=== PATIENT | female | born 1950 | race Caucasian/White ===

== ENCOUNTER 2016-12-29 15:14 | Emergency (ER) | payer MEDICARE ==
[2016-12-29 17:18] VITALS: BP 106/69
--- NOTE | 2016-12-29 17:44 | UC ---
Respiratory Complaint HPI - HPI Summary HPI Summary: 2 WEEKS OF COUGH, CHEST CONGESTION THAT NOW SEEM IMPROVED. HAD FEVER TMAX 102 INITIALLY BUT NONE FOR OVER A WEEK. NOW PT REPORTS SINUS SX HAVE RETURNED. HAS DIFFUSE ABDOMINAL DISCOMFORT, FEELS NAUSEATED. NO DIARRHEA. DENIES DYSURIA BUT DOES REPORT SOME FREQUENCY. 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 Negative: Dyspnea, Chills, Pleuritic Chest Pain, Wheezing, Hemoptysis, Dizziness, Calf Pain, Calf Swelling, Edema, Hoarseness - Allergies/Home Medications Allergies/Adverse Reactions: Allergies Allergy/AdvReac Type Severity Reaction Status Date / Time Penicillins Allergy Unknown Verified 12/29/16 15:30 Reaction Details Home Medications: Home Medications diPHENhydraMINE PO* [Benadryl PO 25 MG TAB*] 12/29/16 [History] PMH/Surg Hx/FS Hx/Imm Hx Endocrine History Of: Denies: Diabetes, Thyroid Disease Cardiovascular History Of: Denies: Cardiac Disorders, Hypertension, Pacemaker/ICD Respiratory History Of: Denies: COPD, Asthma GI/ History Of: Denies: Ulcer, Renal Disease - Surgical History Surgical History: Yes Surgery Procedure, Year, and Place: APPENDECTOMY - Social History Alcohol Use: Weekly Alcohol Amount: 3-4 GLASSES/WEEK Substance Use Type: None Smoking Status (MU): Never Smoked Tobacco - Immunization History Most Recent Tetanus Shot: THINKS SHE IS UTD Review of Systems Constitutional: Fever, Fatigue ENT: Nasal Discharge Respiratory: Cough Cardiovascular: Negative Gastrointestinal: Abdominal Pain, Other - NAUSEA Genitourinary: Frequency Musculoskeletal: Myalgia Neurological: Headache All Other Systems Reviewed And Are Negative: Yes Physical Exam Triage Information Reviewed: Yes Appearance: Well-Appearing, No Pain Distress, Well-Nourished Vital Signs: Initial Vital Signs Temp 98.6 F 12/29/16 15:26 Pulse 70 12/29/16 15:26 Resp 16 04/21/17 15:26 BP 110/62 12/29/16 15:26 Pulse Ox 100 12/29/16 15:26 Vital Signs Reviewed: Yes Eyes: Positive: Conjunctiva Clear ENT: Positive: Hearing grossly normal, Pharynx normal, TMs normal Dental Exam: Normal Neck: Positive: Supple Respiratory Exam: Normal Cardiovascular Exam: Normal Abdomen Description: Positive: Soft Bowel Sounds: Positive: Present Musculoskeletal: Positive: ROM Intact Neurological: Positive: Alert Psychological: Positive: Age Appropriate Behavior Skin: Negative: rashes UC Diagnostic Evaluation - Laboratory O2 Sat by Pulse Oximetry: 100 Diagnostic Studies Comment: URINE DIP SP. GR 1.005, TRACE BLOOD. RAPID FLU NEGATIVE Respiratory Course/Dx - Differential Dx/Diagnosis Provider Diagnoses: 1. ACUTE VIRAL SYNDROME. 2. MICROSCOPIC HEMATURIA Discharge - Discharge Plan Condition: Stable Disposition: HOME Patient Education Materials: Hematuria (ED), Viral Syndrome (ED) Referrals: Ibis Urbina MD [Primary Care Provider] - If Needed Additional Instructions: FLU SWAB NEGATIVE. BLOOD DRAWN TO CHECK BLOOD COUNT AND LYME SEROLOGY. WE WILL CALL YOU WITH ANY ABNORMAL RESULTS. URINE TEST HAD TRACE BLOOD. THERE SHOULD NOT BE ANY BLOOD IN THE URINE. PLEASE HAVE THIS RECHECKED IN ABOUT 2 WEEKS TO ENSURE IT HAS CLEARED. FOLLOW-UP WITH YOUR PCP IF SYMPTOMS ARE NOT IMPROVING EXPECTED OVER THE NEXT WEEK OR SO. VIRAL SYNDROME: The physician has diagnosed a viral infection. Viruses not only cause "colds," but can cause many different symptoms including generalized aching, fever, headache, cough, diarrhea, nausea, vomiting, and fatigue. The treatment, for the most part, is simply relief of symptoms. This means that antibiotics are usually not given. Rest, fluids, pain medications and, occasionally, medication for the specific symptoms that are most bothersome will be prescribed. Contact the physician if you develop any new or unusual symptoms such as severe headache, stiff neck, high fever, chest pain, productive cough, or shortness of breath. You should be rechecked if you don't see marked improvement within seven to 10 days.
[2016-12-30 13:39] LABS: Hematocrit 37 % (35-47); Hemoglobin 12.2 g/dl (12.0-16.0); Mean Corpuscular HGB Conc 33 g/dl (31-36); Mean Corpuscular Hemoglobin 28 pg (27-31); Mean Corpuscular Volume 86 fL (80-97); Mean Platelet Volume 8 um3 (7.4-10.4); Red Blood Count 4.32 10^6/ul (4.0-5.4); Red Cell Distribution Width 13 % (10.5-15); White Blood Count 6.3 10^3/ul (3.5-10.8)
== END 2016-12-29 18:38 | disposition home or self-care (01) ==
LOC: UCEAST 15:14
DX: B34.9 Viral infection, unspecified (principal); R31.29 Other microscopic hematuria; Z88.0 Allergy status to penicillin
CPT/HCPCS: 36415; 81003; 85025; 86618; 87502; 99212; G0463

== ENCOUNTER 2019-01-31 04:53 | Emergency (ER) | payer MEDICARE ==
--- OUTSIDE RECORDS SUMMARY | 2019-01-31 04:59 | XMS REPORT | Continuity of Care Document ---
:1950 External Reference #:[id number] Author Name Ibis Corral M.D. Address [address] [place] [address] Care Team Providers Name Role Phone Ibis Corral Care Team Information Color Checker Roving Or Yarn Unavailable Ibis Corral Primary Care Physician Unavailable Payers Date Identification Numbers Payment Provider Subscriber Effective: 2018 Policy Number: [id number] [place] PayID: [id number] [address] [place] [address] Effective: 2013 Policy Number: [id number] [place] Expires: 2018 PayID: [id number] [address] [place] [address] Effective: 2012 Policy Number: [facility] [place] [id number] Options Group Name[facility] [id number] PayID: [id number] [place] [address] Advance Directives Description No Information Available Problems Active Problems Provider Date Other hyperlipidemia Ibis Corral M.D. Onset: 11/21/2018 Glossodynia Ibis Corral M.D. Onset: 12/08/2011 Family History Date Family Member(s) Observation Comments General Colon Cancer PGF, and father's uncle General Prostate Cancer father's brother General Sister - age 63September. dt breast CA dx'd age 36, 2nd primary 6 years ago recently recurred. No lung, Ca, no uterine,ovarian,cervical CA.No NM, DM. Father , 80, CAD, during Bypass surgery. Mother at May 2013. mild stroke 2 years ago. arrythmia. Lived in [facility] here in [place]. Paget's disease affected her legs. Number of Children 2- healthy. Number of Siblings 5 living siblings, all healthy. 2 , breast CA age 63, and drowning at age 9. Social History Type Date Description Comments Sex Unknown Education Abd, Masters - Masters in Conflict Resolution, [place]. Marital Status Patient is Living Situation Lives with spouse, 28 and 38 yo children in [facility] and [place]. 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 Tobacco Use Start: Unknown End: Former Cigarette Smoker x 5 years. Unknown 1/2 Pack Daily ETOH Use Currently consumes >2-3 glasses wine alcohol weekly. Tobacco Use Start: Unknown End: Patient is a former Unknown smoker Smoking Status Reviewed: 01/30/19 Patient is a former smoker Exercise Type/Frequency Exercises regularly. Current walks daily 45 minutes - 1 hour. jay chi twice weekly. Seat Belt/Car Seat Always uses a seat belt Allergies, Adverse Reactions, Alerts Active Allergies Reaction Severity Comments Date Penicillin arm blew up. 10/05/2010 Evista mouth rash and discomfort 11/21/2018 Medications Active Medications SIG Qnty Indications Ordering Provider Date Doxycycline 1 by mouth twice 60tabs R50.9 Ibis Jefferson 01/30/2019 Monohydrate daily with small Allie Corral 100mg amount of non Tablets dairy food Vitamin D take 1 capsule by 8caps E55.9 Ibis Jefferson 01/07/2019 (Ergocalciferol) mouth once weekly Allie Corral for 8 weeks. [id number] Capsules Lorazepam 1/2 pill po bid 30tabs 300.09 Ibis Jefferson 12/27/2017 0.5mg Tablets prn Allie Corral Turmeric In [place] Oil one daily Ibis Jefferson 07/24/2016 Gel Cap Allie Corral Wellness Pill 1 po qd Unknown History Medications Doxycycline Hyclate take one capsule by 60caps R50.9 Ibis Jefferson 01/30/2019 - mouth twice a day Allie Corral 01/30/2019 100mg Capsules with some food in your stomach, but not dairy Boostrix inject .500ml Z23 Ibis Jefferson 11/21/2018 - intramuscular Allie Corral 01/30/2019 5-2.5-18.5LF-mcg/0.5 Suspension Azithromycin 2 by mouth today. 1 6tabs J01.90 Ibis L. 11/13/2018 - 250mg by mouth daily x 4 Allie Corral 11/21/2018 Tablets Azithromycin 2 by mouth today. 1 31tabs J32.9 Ibis Jefferson 02/13/2018 - 250mg by mouth daily x 29 Allie Corral 11/13/2018 Tablets days for chronic sinusitis Physical Therapy evaluate and treat 1units M25.511 Simona Benitez 12/01/2017 - right shoulder, MINESH Xiao 11/21/2018 right hip and bilateral knees Cyclobenzaprine HCL take 1-2 tablets by 60tabs M25.511 Simona Benitez 2017 - 5mg mouth at night as MINESH Xiao 02/13/2018 Tablets needed for back spasm Azithromycin 2 by mouth today. 1 11tabs Ibis Jefferson 11/20/2017 - 250mg by mouth daily x 9 Allie Corral 12/27/2017 Tablets Atovaquone 5ml by mouth twice 100ml Ibis Jefferson 11/20/2017 - 750mg/5ML daily x 10 days. Allie Corral 12/27/2017 Suspension Doxycycline Hyclate take one capsule by 60caps R51 Ibis Jefferson 11/13/2017 - mouth twice a day Allie Corral 02/13/2018 100mg Capsules on an empty stomach Azithromycin 2 by mouth today. 1 6tabs Ibis Jefferson 01/25/2017 - 250mg by mouth daily x 4 Allie Corral 11/13/2017 Tablets repeat in several days as necessary. Fluconazole 1 by mouth. repeat 4tabs Ibis Jefferson 01/25/2017 - 150mg in 4-6 days as Allie Corral 11/13/2017 Tablets necessary for yeast infection. Physical Therapy left sciatica, Ibis Jefferson 07/24/2016 - right hip pain. Allie Corral 09/06/2016 Right shoulder pain Magnesium one daily. Ibis Jefferson 07/24/2016 - 500mg Allie Corral 01/09/2017 No Active Medications Unknown 07/24/2016 - 07/24/2016 Lorazepam 1/2 pill po bid 30tabs 300.09 Ibis Jefferson 01/29/2014 - 0.5mg Tablets prn Allie Corral 07/24/2016 No Active Medications Unknown 01/15/2014 - 01/15/2014 Omeprazole 1 po bid 60caps 780.99 Ibis Jefferson 01/15/2014 - 20mg Allie Corral 07/24/[address] Vitamin D3` 1 po qod Ibis Jefferson 12/08/2011 - 2500 Allie Corral 01/15/2014 Vitamin 1 po daily Ibis Jefferson 12/08/2011 - C/Bioflavonoids Allie Corral 01/15/2014 1000-100mg Tablets ER Vitamin D3 Ibis Jefferson 10/05/2010 - Allie Corral 12/08/2011 Calcium/Magnesium 2 day Ibis Jefferson 10/05/2010 - Allie Corral 02/24/2013 300-300mg Tablets Vitamin C 1- po qd 100tabs Ibis Jefferson 10/05/2010 - 500mg Tablets Allie Corral 12/08/2011 B Complex Ibis Jefferson 10/05/2010 - Allie Corral 12/08/2011 Evista 1 po qd 90tabs Unknown - 60mg Tablets 11/16/2010 Asprin Unknown - 81mg 11/16/2010 Reservatrol Unknown - 553mg 02/24/2013 Easy Iron Unknown - 25mg 02/24/2013 Zinc Unknown - 50mg Capsules 02/24/2013 Vitamin B-12 Unknown - 50mg 02/24/2013 Tablets Flonase Allergy one spray per Unknown - Relief Childrens nostril daily x 6 01/30/2019 weeks 50mcg/Act Suspension Immunizations CPT Code Status Date Vaccine Lot # [id number] Given 09/05/2010 Influenza Vac, Quadrivalent, [place] [id number] Given 02/09/1999 Tetanus And Diptheria Adult Preservative Free >7Yrs Vital Signs Date Vital Result Comment 01/30/2019 11:17am BP Systolic 120 mmHg BP Diastolic 78 mmHg Heart Rate 84 /min Body Temperature 101.5 F Respiratory Rate 16 /min Weight 133.00 lb 01/07/2019 1:25pm BP Systolic 118 mmHg BP Diastolic 68 mmHg Heart Rate 82 /min Body Temperature 97.9 F Respiratory Rate 14 /min Weight 133.00 lb 11/21/2018 1:01pm BP Systolic 110 mmHg BP Diastolic 70 mmHg Heart Rate 80 /min Body Temperature 98.3 F Respiratory Rate 16 /min Height 62.5 inches 5'2.50" Weight 131.00 lb BMI (Body Mass Index) 23.6 kg/m2 Right Visual Acuity Distance 20/50 Left Visual Acuity Distance 20/25 11/13/2018 11:04am BP Systolic 120 mmHg BP Diastolic 68 mmHg Heart Rate 80 /min Body Temperature 97.9 F Respiratory Rate 18 /min Height 63 inches 5'3" Weight 130.00 lb BMI (Body Mass Index) 23.0 kg/m2 02/13/2018 4:16pm BP Systolic 122 mmHg BP Diastolic 72 mmHg Heart Rate 60 /min Body Temperature 98.6 F Respiratory Rate 16 /min Height 63 inches 5'3" Weight 132.25 lb BMI (Body Mass Index) 23.4 kg/m2 12/27/2017 1:44pm BP Systolic 120 mmHg BP Diastolic 72 mmHg Heart Rate 72 /min Body Temperature 98.1 F Respiratory Rate 18 /min Height 63 inches 5'3" Weight 132.00 lb BMI (Body Mass Index) 23.4 kg/m2 12/01/2017 10:43am BP Systolic 120 mmHg BP Diastolic 72 mmHg Heart Rate 60 /min Body Temperature 98.2 F Respiratory Rate 18 /min Height 63 inches 5'3" Weight 129.00 lb BMI (Body Mass Index) 22.8 kg/m2 11/13/2017 3:14pm BP Systolic 120 mmHg BP Diastolic 64 mmHg Heart Rate 84 /min Body Temperature 98.0 F Respiratory Rate 16 /min Height 63 inches 5'3" Weight 130.00 lb BMI (Body Mass Index) 23.0 kg/m2 01/09/2017 9:50am BP Systolic 120 mmHg BP Diastolic 70 mmHg Heart Rate 60 /min Body Temperature 98.0 F Respiratory Rate 18 /min Height 63 inches 5'3" Weight 128.00 lb BMI (Body Mass Index) 22.7 kg/m2 09/06/2016 10:05am BP Systolic 132 mmHg BP Diastolic 82 mmHg Heart Rate 68 /min Body Temperature 96.6 F Height 63 inches 5'3" Weight 127.00 lb BMI (Body Mass Index) 22.5 kg/m2 07/24/2016 3:53pm BP Systolic 120 mmHg BP Diastolic 60 mmHg Heart Rate 60 /min Body Temperature 97.9 F Respiratory Rate 16 /min Weight 127.50 lb 04/20/2014 7:11pm BP Systolic 114 mmHg BP Diastolic 66 mmHg Heart Rate 60 /min Body Temperature 98.3 F Respiratory Rate 16 /min Height 63 inches 5'3" Weight 126.50 lb BMI (Body Mass Index) 22.4 kg/m2 01/29/2014 10:58am BP Systolic 124 mmHg BP Diastolic 78 mmHg Heart Rate 72 /min Body Temperature 97.7 F Respiratory Rate 16 /min Height 63 inches 5'3" Weight 128.00 lb BMI (Body Mass Index) 22.7 kg/m2 01/15/2014 10:13am BP Systolic 124 mmHg BP Diastolic 80 mmHg Heart Rate 72 /min Body Temperature 97.7 F Respiratory Rate 18 /min Height 63 inches 5'3" Weight 129.00 lb BMI (Body Mass Index) 22.8 kg/m2 02/24/2013 7:19pm BP Systolic 126 mmHg BP Diastolic 80 mmHg Heart Rate 72 /min Body Temperature 98.1 F Respiratory Rate 16 /min Height 63 inches 5'3" Weight 129.38 lb BMI (Body Mass Index) 22.9 kg/m2 12/08/2011 4:05pm BP Systolic 110 mmHg BP Diastolic 60 mmHg Heart Rate 72 /min Body Temperature 97.7 F Respiratory Rate 20 /min Height 63 inches 5'3" Weight 132.00 lb BMI (Body Mass Index) 23.4 kg/m2 11/16/2010 1:08pm BP Systolic 110 mmHg BP Diastolic 70 mmHg Heart Rate 80 /min Body Temperature 98.2 F Respiratory Rate 16 /min Height 63 inches 5'3" Weight 126.00 lb BMI (Body Mass Index) 22.3 kg/m2 10/05/2010 4:55pm BP Systolic 132 mmHg BP Diastolic 82 mmHg Heart Rate 68 /min Body Temperature 97.5 F Height 63 inches 5'3" Weight 124.00 lb BMI (Body Mass Index) 22.0 kg/m2 Results Test Date Facility Test Result H/L Range Note Comprehensive Metabolic 01/30/2019 Alfredo Jill(a) Sodium 138 mEq/L 134-149 Prof Potassium 4.0 mEq/L 3.6-5.5 Chloride 96 mEq/L 94-112 Carbon Dioxide 23 mEq/L 21-32 Glucose 97 mg/dL 70-105 BUN 7 mg/dL 6-26 Creatinine 0.8 mg/dL 0.6-1.4 BUN/Creat Ratio 8.8 CALC 8.0-36.0 Calcium 8.9 mg/dL 8.6-10.2 Total Protein 7.0 g/dL 6.4-8.3 Albumin 4.4 g/dL 3.8-5.5 Globulin 2.6 g/dL 2.0-4.8 A/G Ratio 1.7 CALC 0.6-2.3 Alk. Phosphatase 57 U/L 30-110 Alt (SGPT) 25 U/L 7-35 Ast (Sgot) 24 U/L 5-34 Total Bilirubin 0.7 mg/dL 0.2-1.3 GFR Non- >60 ml/min/1.73m^ >=60 GFR >60 ml/min/1.73m^ >=60 CBC Manual Diff-a 01/30/2019 [facility] WBC <pending> 4.0-10.0 (607)- - RBC <pending> 3.93-6.0 Hemoglobin (Fma/CMC/CTX) <pending> g/dL 12.0-17.0 Hematocrit (Fma/CMC/CTX) <pending> % 35.0-50.0 Mean Corpuscular Vol <pending> fL 80-95 Mean Corpuscular Hemoglobin <pending> pg 25.6-32.2 Mean Corpuscular Hemo Concen <pending> g/dL 32.2-36.0 Platelets <pending> 10^3/ul 163-400 RDW <pending> 11.6-13.7 Mean Platelet Volume <pending> fL 8.0-12.4 Neutrophil % <pending> % 34.0-70.0 Band Neutrophil <pending> % 1-7 Lymph% <pending> % 20.0-52.0 Monocytes % <pending> % 5.0-12.0 Eos % <pending> % 0.7-7.0 Basophil% <pending> % 0-1.2 Atypical Lymph <pending> Metamyelocytes <pending> Myelocytes <pending> Promyelocytes <pending> Blasts <pending> NRBC <pending> % 0-0.1 Macrocytosis <pending> Microcytosis (a/[facility]) <pending> Hypochrom <pending> Polychrom <pending> Anisocytosis (a/[facility]) <pending> Ovalocytes <pending> Elliptocyte <pending> Comment <pending> Flu A&B ([facility]) 01/30/2019 [facility] Medicine Influenza A neg (607)- - Influenza B neg Laboratory test 12/23/2018 Juni Melchor([facility]) TSH 2.82 mIU/L 0.50-6.00 finding Lipid Profile 12/23/2018 Juni Melchor([facility]) Cholesterol 275 mg/dL High 120-200 Triglycerides 83 mg/dL 30-200 HDL Cholesterol 86 mg/dL High 30-85 LDL (Calculated) 172 CALC High 0-129 VLDL Cholesterol 17 mg/dL 0-50 HDL Risk Factor 3.2 CALC 0.0-4.4 Comprehensive Metabolic 12/23/2018 Juni Melchor([facility]) Sodium 145 mEq/L 134-149 Prof Potassium 3.9 mEq/L 3.6-5.5 Chloride 107 mEq/L 94-112 Carbon Dioxide 22 mEq/L 21-32 Glucose 104 mg/dL 70-105 BUN 17 mg/dL 6-26 Creatinine 0.7 mg/dL 0.6-1.4 BUN/Creat Ratio 24.3 CALC 8.0-36.0 Calcium 9.7 mg/dL 8.6-10.2 Total Protein 6.9 g/dL 6.4-8.3 Albumin 4.7 g/dL 3.8-5.5 Globulin 2.2 g/dL 2.0-4.8 A/G Ratio 2.1 CALC 0.6-2.3 Alk. Phosphatase 50 U/L 30-110 Alt (SGPT) 16 U/L 7-35 Ast (Sgot) 18 U/L 5-34 Total Bilirubin 0.9 mg/dL 0.2-1.3 GFR Non- >60 ml/min/1.73m^ >=60 GFR >60 ml/min/1.73m^ >=60 Laboratory test 12/23/2018 Alfredo Jill([facility]) Vitamin D25 27 Low 30-100 finding CBC Electronic Fma 12/23/2018 Alfredo Jill(a) WBC 5.0 4.0-10.0 x10^3/UL RBC 4.01 x10^6/UL 3.93-6.00 HGB 11.6 g/dL Low 12.0-17.0 HCT 36 % 35-50 MCV 89.5 fL 80.0-95.0 MCH 28.9 pg 25.6-32.2 MCHC 32.3 g/dL 32.2-36.0 RDW-CV 13.0 % 11.6-14.4 PLT 265 x10^3/UL 163-400 MPV 9.6 fL 9.4-12.4 Chauncey# 1.66 x10^3/UL 1.56-6.13 Lymph# 2.49 x10^3/UL 1.18-3.74 [place]# 0.49 x10^3/UL 0.24-0.82 Eos # 0.3 x10^3/UL 0.0-0.5 Baso # 0.04 x10^3/UL 0.01-0.08 [place]% 33.5 % Low 34.0-70.0 Lymph % 50.3 % 20.0-52.0 [place]% 9.9 % 5.0-12.0 Eos% 5.3 % 0.7-7.0 Baso% 0.8 % 0.1-1.2 Cat Scratch Fever 12/27/2017 [facility] Bartonella Henselae IgG <1:128 titer <1 :128 Panel Bartonella Henselae IgM <1:20 titer <1:20 Bartonella Lezama IgG <1:128 titer <1:128 Bartonella Lezama IgM <1:20 titer <1:20 1 Laboratory test 11/21/2017 [facility] Babesia Negative Negative 2, [address] microti, [place] [address] (413)- - Hematopath 11/21/2017 [facility] WBC See Comment: 4 Consultation [address] [facility] [address] (607)- - RBC RBC's appear nor <SEE NOTE> 5 PLTs Adequate Comments/Recommendations See Comment: 6 Pathologist See Comment: 7 WBC 5.8 x10E3/uL 3.4-10.8 RBC 4.04 x10E6/uL 3.77-5.28 Hemoglobin 11.6 g/dL 11.1-15.9 Hematocrit 35.7 % 34.0-46.6 MCV 88 fL 79-97 MCH 28.7 pg 26.6-33.0 MCHC 32.5 g/dL 31.5-35.7 RDW 13.9 % 12.3-15.4 Platelets 261 x10E3/uL 150-379 Neutrophils 43 % Not Estab. Lymphs 43 % Not Estab. Monocytes 9 % Not Estab. Eos 5 % Not Estab. Basos 0 % Not Estab. Immature Cells TNP Neutrophils (Absolute) 2.5 x10E3/uL 1.4-7.0 Lymphs (Absolute) 2.5 x10E3/uL 0.7-3.1 Monocytes(Absolute) 0.5 x10E3/uL 0.1-0.9 Eos (Absolute) 0.3 x10E3/uL 0.0-0.4 Baso (Absolute) 0.0 x10E3/uL 0.0-0.2 Immature Granulocytes 0 % Not Estab. Immature Grans (Abs) 0.0 x10E3/uL 0.0-0.1 NRBC TNP Hematology Comments: TNP Lyme, Western Blot, 11/13/2017 [facility] IgG P93 Ab. Absent 8 Serum [address] [place] [address] (605)- - IgG P66 Ab. Absent IgG P58 Ab. Absent IgG P45 Ab. Absent IgG P41 Ab. Present Abnormal IgG P39 Ab. Present Abnormal IgG P30 Ab. Absent IgG P28 Ab. Absent IgG P23 Ab. Absent IgG P18 Ab. Absent Lyme IgG WB Interp. Negative 9 IgM P41 Ab. Absent IgM P39 Ab. Absent IgM P23 Ab. Absent Lyme IgM WB Interp. Negative 10 Ehrlichiosis Panel 11/13/2017 [facility] E. chaffeensis Negative Neg:<1:[address] ([facility]) [place] [address] (607)- - E. chaffeensis ([facility]) IgM Titer Negative Neg:<1:20 11 Hge IgG Titer Negative Neg:<1:64 12 Hge IgM Titer Negative Neg:<1:20 13 Bab[facility]ia Microti 11/13/2017 [facility] [place] microti <1:10 Neg:<1:10 AB Panel [address] [place] [address] (607)- - Babesia microti IgG 1:20 High Neg:<1:10 14 Comprehensive Metabolic 11/13/2017 Alfredo Jill(fma) Sodium 143 mEq/L 134-149 Prof Potassium 4.3 mEq/L 3.6-5.5 Chloride 104 mEq/L 94-112 Carbon Dioxide 30 mEq/L 21-32 Glucose 110 mg/dL High 70-105 15 BUN 16 mg/dL 6-26 Creatinine 0.8 mg/dL 0.6-1.4 BUN/Creat Ratio 20.0 CALC 8.0-36.0 Calcium 10.2 mg/dL 8.6-10.2 Total Protein 7.5 g/dL 6.4-8.3 Albumin 4.8 g/dL 3.8-5.5 Globulin 2.7 g/dL 2.0-4.8 A/G Ratio 1.8 CALC 0.6-2.3 Alk. Phosphatase 56 U/L 30-110 Alt (SGPT) 17 U/L 7-35 Ast (Sgot) 15 U/L 5-34 Total Bilirubin 0.8 mg/dL 0.2-1.3 GFR Non- >60 ml/min/1.73m^ >=60 GFR >60 ml/min/1.73m^ >=60 Laboratory test finding 11/13/2017 Alfredo Jill(fma) TSH 2.08 mIU/L 0.50-6.00 CBC Electronic ([facility] New) 11/13/2017 [facility] WBC 6.25 4.0-10.0 (607)- - RBC 4.12 3.93-6.0 Hemoglobin (Fma/CMC/CTX) 12.1 g/dL 12.0-17.0 Hematocrit (Fma/CMC/CTX) 36.2 % 35.0-50.0 Mean Corpuscular Vol 87.9 fL 80-95 Mean Corpuscular Hemoglobin 29.4 pg 25.6-32.2 Mean Corpuscular Hemo Concen 33.4 g/dL 32.2-36.0 Platelets 255 10^3/ul 163-400 RDW-CV 12.9 11.6-14.4 Mean Platelet Volume 9.4 fL 9.4-12.4 Absolute Neutrophils BLD 3.16 1.56-6.13 Absolute Lymphocytes 2.30 1.18-3.74 Absolute Monocytes BLD Auto 0.48 0.24-0.82 Absolute Eos Blood 0.28 0.04-0.54 Absolute Basophils 0.03 0.01-0.08 Neutrophil % 50.5 34.0-70.0 Lymph% 36.8 % 20.0-52.0 Monocytes % 7.7 % 5.0-12.0 Eos % 4.5 % 0.7-7.0 Basophil% 0.5 % 0.1-1.2 Influenza A&B-[facility] 01/09/2017 [facility] Influenza A NEG (607)- - Influenza B NEG CBC Manual Diff-[facility] 01/09/2017 [facility] WBC 5.1 3.6-9.6 (607)- - RBC 3.74 Low 3.90-5.70 Hemoglobin (Fma/CMC/CTX) 11.1 g/dL Low 12.1 - 17.2 Hematocrit (Fma/CMC/CTX) 32.1 % Low 36.1 - 50.3 Mean Corpuscular Vol 86 82.2-97.4 Mean Corpuscular Hemoglobin 29.7 27.6-33.3 Mean Corpuscular Hemo Concen 34.6 32.0-36.0 Platelets 316 10^3/ul 150-400 RDW 13.5 11.6-13.7 Mean Platelet Volume 6.4 5.5-11.0 Neutrophil 42 Band 2 Lymphocytes 46 Monocyte 5 Eosinophils 5 Poikilocytosis slight Z#Comment plts normal Comprehensive Metabolic 01/09/2017 Alfredo Jill([facility]) Sodium 142 mEq/L 134-149 Prof Potassium 4.4 mEq/L 3.6-5.5 Chloride 103 mEq/L 94-112 Carbon Dioxide 25 mEq/L 21-32 Glucose 105 mg/dL 70-105 BUN 8 mg/dL 6-26 Creatinine 0.8 mg/dL 0.6-1.4 BUN/Creat Ratio 10.0 CALC 8.0-36.0 Calcium 9.7 mg/dL 8.6-10.2 Total Protein 6.4 g/dL 6.4-8.3 Albumin 4.2 g/dL 3.8-5.5 Globulin 2.2 g/dL 2.0-4.8 A/G Ratio 1.9 CALC 0.6-2.3 Alk. Phosphatase 54 U/L 30-110 Alt (SGPT) 12 U/L 7-35 Ast (Sgot) 13 U/L 5-34 Total Bilirubin 0.8 mg/dL 0.2-1.3 GFR Non- >60 ml/min/1.73m^ >=60 GFR >60 ml/min/1.73m^ >=60 Urine Culture 01/09/2017 [facility] Urine Culture, Final report 16, 17 Routine [address] [facility] [place] [address] (607)- - Result 1 No growth 18 G6PD Quantitative 01/09/2017 [facility] Hemoglobin 11.0 g/dL Low 11.1-15.9 Blood And [address] [facility] [place] [address] (607)- - G-6-PD, Quant 6.4 U/gHb 4.6-13.5 19 Ua - Micro (Fma) 01/09/2017 [facility] Medicine Appearance CLEAR (607)- - Color YELLOW Glucose, Urine (Fma/CMC/CTX) NEG Bilirubin NEG Ketones NEG SP Grav 1.010 Blood TRACE-LYSED # PH 5.5 Protein NEG Urobil 0.2 Nitrite NEG Leukocytes (Fma/CMC/[facility]) NEG Hyaline - /Lpf Granular - /Lpf WBC (Fma,[facility]) 2-3 # RBC - Mucus (Fma/CBC/[facility]) RARE /Lpf # Epith - /Lpf Bacteria - /Hpf Amorphous (Fma/CMC/[facility]) - /Lpf Crystals, Fluid (Fma/CMC/CTX) - Lyme, Western Blot, 01/09/2017 [facility] IgG P93 Ab. Absent Serum [address] [place] [address] (607)- - IgG P66 Ab. Absent IgG P58 Ab. Absent IgG P45 Ab. Absent IgG P41 Ab. Absent IgG P39 Ab. Absent IgG P30 Ab. Absent IgG P28 Ab. Absent IgG P23 Ab. Absent IgG P18 Ab. Absent Lyme IgG WB Interp. Negative 20 IgM P41 Ab. Absent IgM P39 Ab. Absent IgM P23 Ab. Absent Lyme IgM WB Interp. Negative 21 CBC Auto Diff 12/29/2016 [facility] White Blood Count 6.3 10^3/uL N 3.5-10.8 Red Blood Count 4.32 10^6/uL N 4.0-5.4 Hemoglobin 12.2 g/dL N 12.0-16.0 Hematocrit 37 % N 35-47 Mean Corpuscular Volume 86 fL N 80-97 Mean Corpuscular Hemoglobin 28 pg N 27-31 Mean Corpuscular HGB Conc 33 g/dL N 31-36 Red Cell Distribution Width 13 % N 10.5-15 Platelet Count 235 10^3/uL N 150-450 Mean Platelet Volume 8 um3 N 7.4-10.4 Abs Neutrophils 3.0 10^3/uL N 1.5-7.7 Abs Lymphocytes 2.4 10^3/uL N 1.0-4.8 Abs Monocytes 0.6 10^3/uL N 0-0.8 Abs Eosinophils 0.3 10^3/uL N 0-0.6 Abs Basophils 0.1 10^3/uL N 0-0.2 Abs Nucleated RBC 0.01 10^3/uL N Granulocyte % 46.7 % N 38-83 Lymphocyte % 38.4 % N 25-47 Monocyte % 9.2 % High 1-9 Eosinophil % 4.9 % N 0-6 Basophil % 0.8 % N 0-2 Nucleated Red Blood Cells % 0.2 N Laboratory test finding 12/29/2016 [facility] Lyme Disease Serology Negative N Negative 22 Poc Urinalysis 12/29/2016 [facility] Poc Glucose, Urine Negative N Negative Poc Bilirubin, Urine Negative N Negative Poc Ketone, Urine Negative N Negative Poc Specific [place], Urine <=1.005 Low 1.010-1.030 Poc Blood, Urine Trace-intact Abnormal Negative Poc pH, Urine 5.5 N 5-9 Poc Protein, Urine Negative N Negative Poc Urobilinogen, Urine 0.2 N Negative Poc Nitrite, Urine Negative N Negative Poc Leukocytes, Urine Negative N Negative Poc Color, Urine Yellow N Poc Clarity, Urine Clear N 23 Rapid Influenza A & B 12/29/2016 [facility] Influenza A Molecular NEGATIVE N Negative 24 Molecular Influenza B Molecular NEGATIVE N Negative Surgical Pathology 09/07/2014 [facility] S RUN DATE: 09/08/ <SEE 25 NOTE> Creatinine 08/10/2014 [facility] Creatinine 0.74 mg/dL N 0.51-0.95 Egfr Non- 78.5 N >60 Egfr 101.0 N >60 26 Laboratory test 04/22/2014 [facility] O P: Giardia/Cryptospor (SEE NOTE) 27 finding Screen Stool Culture (SEE NOTE) 28 E.coli O157:H7 Culture (SEE NOTE) 29 Urine Culture And 04/20/2014 [facility] Urine Culture (SEE NOTE) 30 Sensitivities Comprehensive 04/20/2014 Alfredo Jill(fma) Sodium 135 mEq/L 134-149 Metabolic Prof Potassium 3.7 mEq/L 3.6-5.5 Chloride 103 mEq/L 94-112 Carbon Dioxide 27 mEq/L 21-32 Glucose 90 mg/dL 70-105 BUN 15 mg/dL 6-26 Creatinine 0.8 mg/dL 0.6-1.4 BUN/Creat Ratio 18.8 CALC 8.0-36.0 Calcium 10.0 mg/dL 8.6-10.2 Total Protein 8.0 g/dL 6.3-8.1 Albumin 5.0 g/dL 3.8-5.5 Globulin 3.0 g/dL 2.0-4.8 A/G Ratio 1.7 CALC 0.6-2.3 Alk. Phosphatase 55 U/L 30-110 Alt (SGPT) 20 U/L 7-35 Ast (Sgot) 15 U/L 5-34 Total Bilirubin 0.8 mg/dL 0.2-1.3 Ua - Micro (Fma) 04/20/2014 [facility] Appearance CLEAR (607)- - Color YELLOW Glucose NEGATIVE Bilirubin NEGATIVE Ketones NEGATIVE SP Grav >=1.005 Blood SMALL # PH 5.5 Protein NEGATIVE Urobil 0.2 Nitrite NEGATIVE Leukocytes ([facility]ma/CMC/[facility]) NEGATIVE Hyaline - /Lpf Granular - /Lpf WBC ([facility]) 0-1 # RBC 0-1 # Mucus - /Lpf Epith occass /Lpf # Bacteria rare /Hpf # Amorphous - /Lpf Crystals, Fluid (Fma/CMC/CTX) - Z#Comments - Complete Blood Count 01/15/2014 Juni Jill(a) WBC 4.7 x10^3/UL 3.6 -9.6 RBC 4.19 x10^6/UL 3.90-5.70 HGB 12.3 g/dL 12.1-17.2 HCT 37 % 36-50 MCV 89.0 fL 82.2-97.4 MCH 29.4 pg 27.6-33.3 MCHC 33.0 g/dL 33.0-35.5 RDW 12.1 % 11.6-13.7 PLT 262 x10^3/UL 150-400 MPV 7.1 fL Low 7.4-10.4 Gran # 2.3 x10^3/UL 1.5-7.2 Lymph# 2.1 x10^3/UL 0.7-4.9 [place]# 0.3 x10^3/UL 0.1-0.9 Gran % 48.4 % 42.2-75.2 Lymph % 45.0 % 20.5-51.1 [place]% 6.6 % 1.7-9.3 Comprehensive Metabolic 01/15/2014 Juni Jill(a) Sodium 135 mEq/L 134-149 Prof Potassium 4.2 mEq/L 3.6-5.5 Chloride 101 mEq/L 94-112 Carbon Dioxide 25 mEq/L 21-32 Glucose 96 mg/dL 70-105 BUN 13 mg/dL 6-26 Creatinine 0.8 mg/dL 0.6-1.4 BUN/Creat Ratio 16.3 CALC 8.0-36.0 Calcium 9.7 mg/dL 8.6-10.2 Total Protein 7.3 g/dL 6.3-8.1 Albumin 4.9 g/dL 3.8-5.5 Globulin 2.4 g/dL 2.0-4.8 A/G Ratio 2.0 CALC 0.6-2.3 Alk. Phosphatase 63 U/L 30-110 Alt (SGPT) 13 U/L 7-35 Ast (Sgot) 13 U/L 5-34 Total Bilirubin 1.0 mg/dL 0.2-1.3 Laboratory test 01/15/2014 Juni Jill([facility]) Free T3 2.36 pg/mL 2.00- 4.90 finding Free T4 0.85 ng/dL 0.75-1.54 Vitamin D25 39 30-100 TSH 2.55 mIU/L 0.50-6.00 Lyme Western Blot Ser 01/15/2014 [facility] IgG P93 Ab. Absent [address] [place] [address] [phone] IgG P66 Ab. Absent IgG P58 Ab. Absent IgG P45 Ab. Absent IgG P41 Ab. Absent IgG P39 Ab. Absent IgG P30 Ab. Absent IgG P28 Ab. Absent IgG P23 Ab. Absent IgG P18 Ab. Absent Lyme IgG WB Interp. Negative 31 IgM P41 Ab. Absent IgM P39 Ab. Absent IgM P23 Ab. Absent Lyme IgM WB Interp. Negative 32 Laboratory test 03/04/2013 [facility] Stool Negative Negative 33 finding Helicobacter pylori Ag Comprehensive 12/15/2011 Juni Jill([facility]) Albumin 4.6 g/dL 3.8-5.5 Metabolic Prof Alk. Phos. 64 U/L 30-110 Alt (SGPT) 16 U/L 7-35 Ast (Sgot) 17 U/L 5-34 BUN 14 mg/dL 6-26 Calcium 9.6 mg/dL 8.6-10.2 Chloride 100 mEq/L 94-112 Creatinine 0.8 mg/dL 0.6-1.4 Carbon Dioxide 25 mEq/L 21-32 Glucose 97 mg/dL 70-105 Sodium 137 mEq/L 134-149 Total Bilirubin 1.2 mg/dL 0.2-1.3 Total Protein 7.2 g/dL 6.3-8.1 Potassium 3.6 mEq/L 3.6-5.5 Globulin 2.6 g/dL 2.0-4.8 A/G Ratio 1.8 Calc 0.6-2.2 BUN/Creat Ratio 16.4 Calc 8.0-36.0 Laboratory test 12/15/2011 Juni Jill([facility]) Free T3 2.75 pg/mL 2.00- 4.90 finding Free T4 1.05 ng/dL 0.75-1.54 TSH 3.57 mIU/L 0.50-6.00 B12 371 pg/mL 230-1050 CBC Electronic (a) 12/15/2011 [facility] WBC 4.6 3.6-9.6 (607)- - RBC 4.07 3.90-5.70 Hemoglobin (Fma/CMC/CTX) 11.9 g/dL Low 12.1 - 17.2 Hematocrit (Fma/CMC/CTX) 36.0 % Low 36.1 - 50.3 Platelets 306 10^3/ul 150-400 Lymph% 47.0 20.5-51.1 Mixed% 5.0 Neutrophils % 48.0 Mean Corpuscular Vol 89 82.2-97.4 Mean Corpuscular Hemoglobin 29.2 27.6-33.3 Mean Corpuscular Hemo Concen 33.0 32.0-36.0 RDW 12.2 11.6-13.7 Mean Platelet Volume 7.5 6.5-11.0 Anti Thyroid Abs 12/15/2011 [facility] Thyroid Peroxidase <6 IU/mL 0-34 28 [facility] (Tpo) [place] [address] [phone] Antithyroglobulin Ab <20 IU/mL 0-40 34 Laboratory test 11/16/2010 [facility] Thin Prep SEE NOTE 35 finding 28 [facility] W/HPV(Lsil/JUSTEN/Asc) [place] [address] [phone] Ua - Non Micro 11/16/2010 [facility] Appearance clear (Fma) (607)- - Color yellow Glucose neg Bilirubin neg Ketones neg SP Grav 1.015 Blood neg PH 7.0 Protein neg Urobil 0.2 Nitrite neg Leukocytes (Fma/CMC/[facility]) neg Laboratory test 09/26/2010 Hospital (General) [facility] CBC;VIT D;IRON See Image finding Test Report 1 ADDITIONAL INFORMATION This test was developed and its performance characteristics determined by [facility] in a manner consistent with CLIA requirements. This test has not been cleared or approved by the U.S. Food and Drug Administration. Test Performed by: [facility] - [facility] [address] [place] [address] 2 HEMATOPATH CONSULTATION SM EAR 3 No Babesia DNA detected. This test was developed and its performance characteristics determined by [employer]. It has not been cleared or approved by the Food and Drug Administration. The FDA has determined that such clearance or approval is not necessary. 4 Few lymphocytes appear reactive. 5 RBC's appear normal. 6 Pathologist's review verifies previously reported differential results. Correlation and Clinically appropriate follow up suggested. 7 Reviewed by: Mildred Vallejo MD, Pathologist 8 2sst 9 Positive: 5 of the following Borrelia-specific bands: 18,23,28,30,39,41,45,58, 66, and 93. Negative: No bands or banding patterns which do not meet positive criteria. 10 Note: An equivocal or positive EIA result followed by a negative Western Blot result is considered NEGATIVE. An equivocal or positive EIA result followed by a positive Western Blot is considered POSITIVE by the CDC. Positive: 2 of the following bands: 23,39 or 41 Negative: No bands or banding patterns which do not meet positive criteria. Criteria for positivity are those recommended by CDC/ASTPHLD. p23=Osp C, g91=zbnrebanh Note: Sera from individuals with the following may cross react in the Lyme Western Blot assays: other spirochetal diseases (periodontal disease, leptospirosis, relapsing fever, yaws, and pinta); connective autoimmune (Rheumatoid Arthritis and Systemic Lupus Erythematosus and also individuals with Antinuclear Antibody); other infections (Krebs Spotted Fever; Briana-Cook Virus, and Cytomegalovirus). 11 IgG titers if 1:64 or greater indicate exposure or acute and convalescent samples showing a four-fold increase, and/or the presence of IgM indicate recent or current infection. 12 HGE IgG levels are detectable 7 to 10 days post infection and persist approximately one year. 13 Due to a reagent backorder, this test was performed using a different assay. The reference interval for this alternate assay is: Negative <1:64 Positive 1:64 or greater IgM levels usually rise 3 to 5 days post infection and fall to normal levels in approximately 30 to 60 days. 14 This test was developed and its performance characteristics determined by [facility]. It has not been cleared or approved by the U.S. Food and Drug Administration. The FDA has determined that such clearance or approval is not necessary. This test is used for clinical purposes. It should not be regarded as investigational or research. 15 RESULTS VERIFIED BY REPEAT ANALYSIS 16 SRC:<Blank> [id number] VACUTAINER 17 Source of Specimen: <Blank> [id number] 18 Source of Specimen: <Blank> [id number] 19 When decreased, G-6-PD, Quant. values are associated with acute hemolytic anemia when deficient individuals are exposed to oxidative stress, such as with certain medications (e.g., primaquine), infection, or ingestion of lexx beans. Caution: In patients with acute hemolysis (e.g., abnormally low RBC values), testing for G-6-PD may be falsely normal because older erythrocytes with a higher enzyme deficiency have been hemolyzed. Young erythrocytes and reticulocytes have normal or near-normal enzyme activity. Normal values of G-6-PD may be measured for several weeks following a hemolytic event. 20 Positive: 5 of the following Borrelia-specific bands: 18,23,28,30,39,41,45,58, 66, and 93. Negative: No bands or banding patterns which do not meet positive criteria. 21 Note: An equivocal or positive EIA result followed by a negative Western Blot result is considered NEGATIVE. An equivocal or positive EIA result followed by a positive Western Blot is considered POSITIVE by the CDC. Positive: 2 of the following bands: 23,39 or 41 Negative: No bands or banding patterns which do not meet positive criteria. Criteria for positivity are those recommended by CDC/ASTPHLD. p23=Osp C, m92=sxovxzyhh Note: Sera from individuals with the following may cross react in the Lyme Western Blot assays: other spirochetal diseases (periodontal disease, leptospirosis, relapsing fever, yaws, and pinta); connective autoimmune (Rheumatoid Arthritis and Systemic Lupus Erythematosus and also individuals with Antinuclear Antibody); other infections (Krebs Spotted Fever; Briana-Cook Virus, and Cytomegalovirus). 22 Serologic response to B. burgdorferi infection is not detected, but cannot rule out early infection during which low or undetectable antibody levels to B. burgdorferi may be present. If clinically indicated, a new serum specimen should be submitted in 7-14 days. Test Performed by: [address] [address] 23 Plate Painter Apprentice: [id number] Plate Painter Apprentice: [id number] RUN DATE: 09/08/14 [facility] LIVE PAGE 1 RUN TIME: [address] [place] [address] Specimen Inquiry Name: KENIA WOODS : [address]: Osman Miller MD Acct: [id number] Unit: [id number] AGE: 64 Location: ENDO Re09/07/14 SEX: F Status: REG REF SPEC: [id number] NICHOLE: 09/07/[address] [facility] [address]: Osman Miller MD REQ: [id number] RECD: 09/07/145389 STATUS: GOOD OLSON DR: Ibis Corral MD _ ORDERED: LEVEL IV FINAL DIAGNOSIS Colon, hepatic flexure, biopsy: -- Tubular adenoma. -- No high grade dysplasia or malignancy. CLINICAL HISTORY Screening colonoscopy with right lower quadrant pain and history of colon polyps POST-OPERATIVE DIAGNOSIS Screening colonoscopy into terminal ileum, prep good - small hepatic flexure polyp removed GROSS DESCRIPTION The specimen is received in formalin labeled, Biopsy Hepatic Flexure Polyp, and consists of a 0.3 x 0.2 x 0.2 cm rogers-pink irregular soft tissue fragment, which is submitted entirely in one cassette. Signed (signature on file) Prema Garvey MD 1215 END OF REPORT * ML=Testing performed at Main Lab DEPARTMENT OF PATHOLOGY, [address] [place] [address] Ran Hammond M.D. Director [facility] # [id number] 26 Because ethnic data is not always readily available, this report includes an eGFR for both -Americans and non- Americans. The National Kidney Disease Education Program (NKDEP) does not endorse the use of the MDRD equation for patients that are not between the ages of 18 and 70, are , have extremes of body size, muscle mass, or nutritional status, or are non- or non-. According to the National Kidney Foundation, irrespective of diagnosis, the stage of the disease is based on the level of kidney function: Stage Description GFR(mL/min/1.73 m(2)) 1 Kidney damage with normal or decreased GFR 90 2 Kidney damage with mild decrease in GFR 60-89 3 Moderate decrease in GFR 30-59 4 Severe decrease in GFR 15-29 5 Kidney failure <15 (or dialysis) 27 RUN DATE: 04/22/14 [facility] LIVE PAGE 1 RUN TIME: [address] [place] [address] Specimen Inquiry Name: KENIA WOODS : [address]: Ibis Corral MD Acct: [id number] Unit: [id number] AGE: 64 Location: [facility] Re04/22/14 SEX: F Status: REG REF SPEC: [id number] NICHOLE: 04/22/14-[address] [facility] [address]: Ibis Corral MD REQ: [id number] RECD: 04/22/14 STATUS: RES _ SOURCE: STOOL SPDESC: ORDERED: E.coli O157:H7, Stool Culture, O P: Giar/Crypt QUERIES: [facility] Number [id number] Procedure Result Verified Site E.coli O157:H7 Culture PENDING Stool Culture PENDING Stool Specimen Description Final 04/22/14- 1250 ML Stool Color Brown Stool Form Semi-formed Stool Consistency Soft Shiga Toxin 1 2 PENDING O P: Giardia/Cryptospor Screen Final 04/22/14- 1446 ML Organism 1 Neg Cryptosporidium/Giardia Giardia and cryptosporidium antigen testing performed by enzyme immunoassay. If patient is immunocompromised or has traveled to or is from a developing country, a full ova and parasite exam with microscopic (OPMIC) is recommended. All samples will be held one month in case full ova and parasite testing is requested. Contact the Microbiology Department at [phone]. TEST LIMITATIONS: As with all diagnostic procedures, the results obtained should be used in conjunction with other clinical information available the physician. Negative results can occur in samples containing antigen below lower limits of CONTINUED ON NEXT PAGE * ML=Testing performed at Main Lab DEPARTMENT OF PATHOLOGY, [facility] [address] [place], [place] [address] Ran Hammond M.D. Director [facility] # [id number] RUN DATE: 04/22/14 [facility] LIVE PAGE 2 RUN TIME: 1446 [facility] [address] [place], [place] [address] Specimen Inquiry Patient: KENIA WOODS [id number] (Continued) Specimen: [id number] Collected: 04/22/14 Received: 04/22/14-1128 (Continued) Procedure Result Verified Site O P: Giardia/Cryptospor Screen Final (continued) 04/22/14- 1446 detection of the assay. The use of colonic washes, aspirates or other diluted sample types has not been established and could affect the performance of the assay. Stool samples contaminated with an oily or particulate base (eg. Barium, mineral oil etc.) could interfere with the test and are not recommended. END OF REPORT * ML=Testing performed at Main Lab DEPARTMENT OF PATHOLOGY, [facility] [address] [place] [address] Ran Hammond M.D. Director [facility] # [id number] 28 RUN DATE: 04/24/14 [facility] LIVE PAGE 1 RUN TIME: 1008 [facility] [address] [place] [address] Specimen Inquiry Name: KENIA WOODS : [address]: Ibis Corral MD Acct: [id number] Unit: [id number] AGE: 64 Location: [facility] Re04/22/14 SEX: F Status: REG REF SPEC: [id number] NICHOLE: 04/22/14-[address] [facility] [address]: Ibis Corral MD REQ: [id number] RECD: 04/22/14 STATUS: RES _ SOURCE: STOOL SPDESC: ORDERED: E.coli O157:H7, Stool Culture, O P: Giar/Crypt QUERIES: [facility] Number [id number] Procedure Result Verified Site E.coli O157:H7 Culture PENDING Stool Culture PENDING Stool Specimen Description Final 04/22/14- 1250 ML Stool Color Brown Stool Form Semi-formed Stool Consistency Soft Shiga Toxin 1 2 Final 04/24/14- 1008 ML Organism 1 Negative Shiga Toxin 1 2 Immunochromatographic Assay O P: Giardia/Cryptospor Screen Final 04/22/14- 1446 ML Organism 1 Neg Cryptosporidium/Giardia Giardia and cryptosporidium antigen testing performed by enzyme immunoassay. If patient is immunocompromised or has traveled to or is from a developing country, a full ova and parasite exam with microscopic (OPMIC) is recommended. All samples will be held one month in case full ova and parasite testing is requested. Contact the Microbiology Department at [phone]. TEST LIMITATIONS: As with all diagnostic procedures, the results obtained CONTINUED ON NEXT PAGE * ML=Testing performed at Main Lab DEPARTMENT OF PATHOLOGY, [facility] [place] [place] [address] Ran Hammond M.D. Director [facility] # [id number] RUN DATE: 04/24/14 [facility] LIVE PAGE 2 RUN TIME: 1008 [facility] [address] [place], [place] [address] Specimen Inquiry Patient: KENIA WOODS [id number] (Continued) Specimen: [id number] Collected: 04/22/14-999 Received: 04/22/14-1128 (Continued) Procedure Result Verified Site O P: Giardia/Cryptospor Screen Final (continued) 04/22/14- 1446 should be used in conjunction with other clinical information available the physician. Negative results can occur in samples containing antigen below lower limits of detection of the assay. The use of colonic washes, aspirates or other diluted sample types has not been established and could affect the performance of the assay. Stool samples contaminated with an oily or particulate base (eg. Barium, mineral oil etc.) could interfere with the test and are not recommended. END OF REPORT * ML=Testing performed at Main Lab DEPARTMENT OF PATHOLOGY, [facility] [place] [address] Ran Hammond M.D. Director [facility] # [id number] 29 RUN DATE: 04/25/14 [facility] LIVE PAGE 1 RUN TIME: 928 [facility] [address] [place], [place] [address] Specimen Inquiry Name: KENIA WOODS : [address]: Ibis Corral MD Acct: [id number] Unit: [id number] AGE: 64 Location: [facility] Re04/22/14 SEX: F Status: REG REF SPEC: [id number] NICHOLE: 04/22/14-[address]: Ibis Corral MD REQ: [id number] RECD: 04/22/14 STATUS: COMP _ SOURCE: STOOL SPDESC: ORDERED: E.coli O157:H7, Stool Culture, O P: Moraima/Leyda QUERIES: [facility] Number [id number] Procedure Result Verified Site E.coli O157:H7 Culture Final 04/25/14- 928 ML E. coli 0157 Culture Negative Stool Culture Final 04/25/14- 928 ML Result No enteric pathogens isolated Testing for Salmonella, Shigella, Aeromonas, Plesiomonas, Yersinia and Campylobacter are included in a Stool Culture. Vibrio spp not routinely tested for in a stool culture. If testing is desired, please request specifically when placing test order. Sensitivities not routinely performed on stool isolates, as antibiotics may prolong the carriage rate of bacteria. Please contact the microbiology lab if sensitivities are required. Stool Specimen Description Final 04/22/14- 1250 ML Stool Color Brown Stool Form Semi-formed Stool Consistency Soft Shiga Toxin 1 2 Final 04/24/14- 1008 ML Organism 1 Negative Shiga Toxin 1 2 CONTINUED ON NEXT PAGE * ML=Testing performed at Main Lab DEPARTMENT OF PATHOLOGY, [facility] [place] [place] [address] Ran Hammond M.D. Director [facility] # [id number] RUN DATE: 04/25/14 [facility] LIVE PAGE 2 RUN TIME: 928 [facility] [address] [place], [place] [address] Specimen Inquiry Patient: KENIA WOODS [id number] (Continued) Specimen: [id number] Collected: 04/22/14-999 Received: 04/22/14-1128 (Continued) Procedure Result Verified Site Shiga Toxin 1 2 Final (continued) 04/24/14- 1008 Immunochromatographic Assay O P: Giardia/Cryptospor Screen Final 04/22/14- 1446 ML Organism 1 Neg Cryptosporidium/Giardia Giardia and cryptosporidium antigen testing performed by enzyme immunoassay. If patient is immunocompromised or has traveled to or is from a developing country, a full ova and parasite exam with microscopic (OPMIC) is recommended. All samples will be held one month in case full ova and parasite testing is requested. Contact the Microbiology Department at [phone]. TEST LIMITATIONS: As with all diagnostic procedures, the results obtained should be used in conjunction with other clinical information available the physician. Negative results can occur in samples containing antigen below lower limits of detection of the assay. The use of colonic washes, aspirates or other diluted sample types has not been established and could affect the performance of the assay. Stool samples contaminated with an oily or particulate base (eg. Barium, mineral oil etc.) could interfere with the test and are not recommended. END OF REPORT * ML=Testing performed at Main Lab DEPARTMENT OF PATHOLOGY, [facility] [address] [place], [place] [address] Ran Hammond M.D. Director [facility] # [id number] RUN DATE: 04/23/14 [facility] LIVE PAGE 1 RUN TIME: [address] [place], [place] [address] Specimen Inquiry Name: KENIA WOODS : [address]: Ibis Corral MD Acct: [id number] Unit: [id number] AGE: 64 Location: [facility] Re04/20/14 SEX: F Status: REG REF SPEC: [id number] NICHOLE: 04/20/14-825 [facility] [address]: Ibis Corral MD REQ: [id number] RECD: 04/21/14 STATUS: COMP _ SOURCE: URINE SPDESC: ORDERED: Urine Culture COMMENTS: 1 BORTEX QUERIES: [facility] Number [id number] Procedure Result Verified Site Urine Culture Final 04/23/14- 0918 ML No Growth Day 2 (<1,000 CFU/mL) END OF REPORT * ML=Testing performed at Main Lab DEPARTMENT OF PATHOLOGY, [address] [place] [address] Ran Hammond M.D. Director [facility] # [id number] 31 Positive: 5 of the following Borrelia-specific bands: 18,23,28,30,39,41,45,58, 66, and 93. Negative: No bands or banding patterns which do not meet positive criteria. 32 Note: An equivocal or positive EIA result followed by a negative Western Blot result is considered NEGATIVE. An equivocal or positive EIA result followed by a positive Western Blot is considered POSITIVE by the CDC. Positive: 2 of the following bands: 23,39 or 41 Negative: No bands or banding patterns which do not meet positive criteria. Criteria for positivity are those recommended by CDC/ASTPHLD. p23=Osp C, g24=dpmfubpww Note: Sera from individuals with the following may cross react in the Lyme Western Blot assays: other spirochetal diseases (periodontal disease, leptospirosis, relapsing fever, yaws, and pinta); connective autoimmune (Rheumatoid Arthritis and Systemic Lupus Erythematosus and also individuals with Antinuclear Antibody); other infections (Krebs Spotted Fever; Briana-Cook Virus, and Cytomegalovirus). 33 Test Performed by: [address] [address] Educational Advisor: Blayne Kim III, M.D. 34 [employer] (DPC) IC[employer] Methodology 35 [facility] [employer] DEPARTMENT OF PATHOLOGY or Extension [employer] [employer] [facility] REPORT PATIENT: KENIA WOODS : 1950 AGE: 60 Y SEX: F ACCT: [id number] PROCEDURE DATE: 11/16/2010 DATE RECEIVED: 11/17/2010 REQUESTING PHYSICIAN: IBIS CORRAL MD LOCATION: [facility] Case No. [id number] PATIENT DATA: [id number] SPECIMEN SUBMITTED: * * (HPVII) THIN PREP W/HPV (LSIL/ASC/JUSTEN) * * ENDOCERVICAL RELEVANT HISTORY: Menopause: Y SPECIMEN ADEQUACY SATISFACTORY FOR EVALUATION. THE PRESENCE OF TRANSFORMATION ZONE COMPONENT CANNOT BE DETERMINED DUE TO ATROPHIC CHANGES. GENERAL CATEGORIZATION NEGATIVE FOR INTRAEPITHELIAL LESIONS OR MALIGNANCY ADDITIONAL COPIES SENT TO: Screened/Rescreened Electronically Signed Sign Out Date/Time: by: by: EDDIE BERRY, 11/17/2010 16:19 CT(ASCP) Thin Prep Pap tests are examined with an FDA-approved location-guidance system (64493). Performed @ [facility], [employer] [address] [place] [address] Procedures Date Code Description Status 12/09/2018 24430 Dxa Bone Density Study One Or More Sites Axial Completed Skeleton 12/09/2018 89246145 Mammogram Completed 11/08/2018 886111098 Bone Mineral Density Test Completed 09/07/2014 [id number] Colonoscopy Completed 08/02/2009 12662120 Colonoscopy Completed Encounters Type Date Location Provider Dx Diagnosis Office Visit 01/07/2019 [facility] Office Ibis Jefferson E78.2 Mixed hyperlipidemia 1:00p Allie Corral E55.9 Vitamin D deficiency, unspecified M81.0 Age-related osteoporosis w/o current pathological fracture J32.9 Chronic sinusitis, unspecified N81.4 Uterovaginal prolapse, unspecified Office Visit 11/21/2018 1:00p [facility] Ibis Jefferson Z00.00 Encntr for Allie Corral general adult medical exam w/o abnormal findings Z12.31 Encntr screen mammogram for malignant neoplasm of breast Z12.11 Encounter for screening for malignant neoplasm of colon Z23 Encounter for immunization E78.49 Other hyperlipidemia E55.9 Vitamin D deficiency, unspecified J31.0 Chronic rhinitis Office Visit 11/13/2018 11:00a Main Office Ibis Jefferson J01.90 Acute sinusitis, Allie Corral unspecified Office Visit 02/13/2018 3:50p Main Office Ibis Jefferson R51 Headache Allie Corral A69.20 Lyme disease, unspecified M25.511 Pain in right shoulder J32.9 Chronic sinusitis, unspecified Office Visit 12/27/2017 1:40p [facility] Ibis Jefferson R53.83 Other fatigue Allie Corral N95.1 Menopausal and female climacteric states 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 R51 Headache J32.9 Chronic sinusitis, unspecified Office Visit 01/09/2017 9:40a [facility] Ibis Jefferson J06.9 Acute upper Allie Corral respiratory infection, unspecified R31.9 Hematuria, unspecified Office Visit 07/24/2016 2:50p Main Office Ibis Jefferson M25.511 Pain in right Allie Corral shoulder M54.32 Sciatica, left side Office Visit 04/20/2014 6:40p Main Office Ibis Jefferson 530.81 Esophageal Reflux Allie Corral 536.8 Stomach Dyspepsia & Other Spec Disorders Of Function 729.5 Pain In Limb Office Visit 01/29/2014 10:50a Main Office Ibis Jefferson 530.81 Esophageal Reflux Allie Corral 300.09 Anxiety States Other Office Visit 01/15/2014 10:00a [facility] Ibis Jefferson 780.99 General Allie Corral Symptoms Other 268.9 Vitamin D Deficiency Unspec Office Visit 02/24/2013 6:30p Main Office Ibis Jefferson 789.04 Pain Abdominal Allie Corral Left Lower Quadrant 784.1 Throat Pain Office Visit 12/08/2011 3:30p [facility] Ibis Jefferson 780.79 Malaise And Allie Corral Fatigue Other 529.6 Glossodynia Office Visit 11/16/2010 1:00p Main Office Ibis Jefferson V70.0 Examination General Allie Corral Medical Routine AT [facility] 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 529.6 Glossodynia 733.09 Osteoporosis Other Plan of Treatment 01/30/2019 - Ibis Corral M.D.R50.9 Fever, unspecifiedNew Medication: Doxycycline Monohydrate 100 mg - 1 by mouth twice daily with small amount of non dairy foodDoxycycline Hyclate 100 mg - take one capsule by mouth twice a day with some food in your stomach, but not dairyComments:Drink lots of fluid, tylenol for fever/chills. if you get constipated, take milk of magnesia. Doubt this fever is from sinuses or infected tooth.possible lymepossible other tick borne [email or web address]: AllComments:Medication Management Patient Understands medications she's taking? Yes No Are there Barriers to Adherence? Yes No Has the patient been asked about herbal supplements and therapies, and OTC meds? Yes No
--- OUTSIDE RECORDS SUMMARY | 2019-01-31 04:59 | XMS REPORT | Continuity of Care Document ---
:1950 External Reference #:[id number] Author Name Ibis Corral M.D. Address [address] [place] [address] Care Team Providers Name Role Phone Ibis Corral Care Team Information Manager [place] Unavailable Ibis Corral Primary Care Physician Unavailable Payers Date Identification Numbers Payment Provider Subscriber Effective: 2018 Policy Number: [id number] [place] PayID: [id number] [address] [place] [address] Effective: 2013 Policy Number: [id number] [place] Expires: 2018 PayID: [id number] [address] [place] [address] Effective: 2012 Policy Number: [facility] [place] [id number] Options Group Name: [employer] Supplement [address] PayID: [id number] [place] [address] Advance Directives Description No Information Available Problems [...] recurred. No lung, Ca, no uterine,ovarian,cervical CA.No MA, DM. Father , 80, CAD, during Bypass surgery. Mother at 101 May 2013. mild stroke 2 years ago. arrythmia. Lived in [facility] here in [place]. Paget's disease affected her legs. Number of Children 2- healthy. Number of Siblings 5 living siblings, all healthy. 2 , breast CA age 61, and drowning at age 9. Social History Type Date Description Comments Sex Unknown Education Abd, Masters - Masters in Conflict Resolution, [place]. Marital Status Patient is Living Situation Lives with spouse, 28 and 38 yo children in [facility] and [place]. 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 Tobacco Use Start: Unknown End: Former Cigarette Smoker x 5 years. Unknown 1/2 Pack Daily ETOH Use Currently consumes >2-3 glasses wine alcohol weekly. Tobacco Use Start: Unknown End: Patient is a former Unknown smoker Smoking Status Reviewed: 01/07/19 Patient is a former smoker Exercise Type/Frequency Exercises regularly. Current walks daily 45 minutes - 1 hour. jay chi twice weekly. Seat Belt/Car Seat Always uses a seat belt Allergies, Adverse Reactions, Alerts Active Allergies Reaction Severity Comments Date Penicillin arm blew up. 10/05/2010 Evista mouth rash and discomfort 11/21/2018 Medications Active Medications SIG Qnty Indications Ordering Date Provider Vitamin D take 1 capsule by 8caps E55.9 Ibis Jefferson 01/07/2019 (Ergocalciferol) mouth once weekly for Allie Corral 8 weeks. 17846Hxly Capsules Boostrix inject intramuscular .500ml Z23 Ibis Jefferson 11/21/2018 Allie Corral 5-2.5-18.5LF-mcg/0. 5 Suspension Lorazepam 1/2 pill po bid prn 30tabs 300.09 Ibis Jefferson 12/27/2017 0.5mg Allie Corral Tablets Turmeric In [place] one daily Ibis Jefferson 07/24/2016 Oil Gel Cap Allie Corral Wellness Pill 1 po qd Unknown Flonase Allergy one spray per nostril Unknown Relief Childrens daily x 6 weeks 50mcg/Act Suspension History Medications Azithromycin 2 by mouth 6tabs J01.90 Ibis Jefferson 11/13/2018 - 250mg today. 1 by Allie Corral 11/21/2018 Tablets mouth daily x 4 Azithromycin 2 by mouth 31tabs J32.9 Ibsi Jefferson 02/13/2018 - 250mg today. 1 by Allie Corral 11/13/2018 Tablets mouth daily x 29 days for chronic sinusitis Physical Therapy evaluate and 1units M25.511 Simona Eli 12/01/2017 - treat right Xiao, MEDICAL RECORD LIBRARIAN 11/21/2018 shoulder, right hip and bilateral knees Cyclobenzaprine HCL take 1-2 tablets 60tabs M25.511 Simona Eli 12/01/2017 - 5mg by mouth at Xiao, MEDICAL RECORD LIBRARIAN 02/13/2018 Tablets night as needed for back spasm Azithromycin 2 by mouth 11tabs Ibis Jefferson 11/20/2017 - 250mg today. 1 by Allie Corral 12/27/2017 Tablets mouth daily x 9 Atovaquone 5ml by mouth 100ml Ibis Jefferson 11/20/2017 - 750mg/5ML twice daily x 10 Allie Corral 12/27/2017 Suspension days. Doxycycline Hyclate take one capsule 60caps R51 Ibis Jefferson 11/13/2017 - 100mg by mouth twice a Allie Corral 02/13/2018 Capsules day on an empty stomach Azithromycin 2 by mouth 6tabs Ibis Jefferson 01/25/2017 - 250mg today. 1 by Allie Corral 11/13/2017 Tablets mouth daily x 4 repeat in several days as necessary. Fluconazole 1 by mouth. 4tabs Ibis Jefferson 01/25/2017 - 150mg Tablets repeat in 4-6 Allie Corral 11/13/2017 days as necessary for yeast infection. Physical Therapy left [...] 60caps 780.99 Ibis Jefferson 01/15/2014 - 20mg Capsules Allie Corral 07/24/2016 Vitamin D3` 1 po qod Ibis Jefferson [...] Capsules 02/24/2013 Vitamin B-12 Unknown - 50mg Tablets 02/24/2013 Immunizations CPT Code Status Date Vaccine Lot # [id number] Given 09/05/2010 Influenza Vac, Quadriv[place], [place] [id number] Given 02/09/1999 Tetanus And Diptheria Adult Preservative Free >7Yrs Vital Signs Date Vital Result Comment 01/07/2019 1:25pm BP Systolic 118 mmHg BP [...] Date Facility Test Result H/L Range Note CBC Electronic Fma 12/23/2018 [facility] Jill(fma) WBC 5.0 x10^3/UL 4.0- 10.0 RBC 4.01 x10^6/UL 3.93-6.00 HGB 11.6 g/dL Low 12.0-17.0 HCT 36 % 35-50 MCV 89.5 fL 80.0-95.0 MCH 28.9 pg 25.6-32.2 MCHC 32.3 g/dL 32.2-36.0 RDW-CV 13.0 % 11.6-14.4 PLT 265 x10^3/UL 163-400 MPV 9.6 fL 9.4-12.4 Chauncey# 1.66 x10^3/UL 1.56-6.13 Lymph# 2.49 x10^3/UL 1.18-3.74 [place]# 0.49 x10^3/UL 0.24-0.82 Eos # 0.3 x10^3/UL 0.0-0.5 Baso # 0.04 x10^3/UL 0.01-0.08 Chauncey% 33.5 % Low 34.0-70.0 Lymph % 50.3 % 20.0-52.0 [place]ana% 9.9 % 5.0-12.0 Eos% 5.3 % 0.7-7.0 Baso% 0.8 % 0.1-1.2 Laboratory test 12/23/2018 Juni Jill(fma) Vitamin D25 27 Low 30-100 finding Comprehensive 12/23/2018 Juni Jill(fma) Sodium 145 mEq/L 134-149 Metabolic Prof Potassium 3.9 mEq/L 3.6-5.5 Chloride 107 [...] >60 ml/min/1.73m^ >=60 GFR >60 ml/min/1.73m^ >=60 Lipid Profile 12/23/2018 Juni Jill(fma) Cholesterol 275 mg/dL High 120-200 Triglycerides 83 mg/dL 30-200 HDL Cholesterol 86 mg/dL High 30-85 LDL (Calculated) 172 CALC High 0-129 VLDL Cholesterol 17 mg/dL 0-50 HDL Risk Factor 3.2 CALC 0.0-4.4 Laboratory test 12/23/2018 Juni Jill(fma) TSH 2.82 mIU/L 0.50-6.00 finding Cat Scratch Fever 12/27/2017 [facility]ella <1:128 <1:128 Panel Henselae IgG titer Bartonella Henselae IgM <1:20 titer <1:20 Bartonella Lezama IgG <1:128 titer <1:128 Bartonella Lezama IgM <1:20 titer <1:20 1 Laboratory test 11/21/2017 [facility] Babesia Negative Negative 2, 3 finding [address] [facility] microti, [place] [address] (607)- - Hematopath 11/21/2017 [facility] WBC See Comment: 4 Consultation [address] [facility] [place] [address] (607)- - RBC RBC's appear nor <SEE [...] IgG P93 Ab. Absent 8 Serum [address] [place] [address] (604)- - IgG P66 Ab. Absent IgG P58 [...] Panel 11/13/2017 [facility] E. chaffeensis Negative Neg:<1:[address] [place] [address] ([facility]) [place] [address] (601)- - E. chaffeensis ([facility]) IgM Titer Negative Neg:<1:20 11 Hge IgG Titer Negative Neg:<1:64 12 Hge IgM Titer Negative Neg:<1:20 13 Babesia Microti 11/13/2017 [facility] Babesia microti <1:10 Neg:<1:10 AB Panel [address] [facility] [place] [address] (608)- - Babesia microti IgG 1:20 High Neg:<1:10 [...] ml/min/1.73m^ >=60 Laboratory test finding 11/13/2017 Alfredo Jill([facility]) TSH 2.08 mIU/L 0.50-6.00 CBC Electronic ([facility] New) 11/13/2017 [facility] WBC 6.25 4.0-10.0 (607)- - RBC 4.12 3.93-6.0 Hemoglobin (a/CMC/CTX) 12.1 g/dL 12.0-17.0 Hematocrit (a/CMC/CTX) 36.2 % 35.0-50.0 Mean Corpuscular Vol 87.9 [...] % 0.7-7.0 Basophil% 0.5 % 0.1-1.2 Influenza A&B-[facility] 01/09/2017 [facility] Influenza A NEG (607)- - Influenza B NEG CBC Manual Diff-[facility] 01/09/2017 [facility] WBC 5.1 3.6-9.6 (607)- - RBC 3.74 Low 3.90-5.70 Hemoglobin (a/CMC/CTX) 11.1 g/dL Low 12.1 - 17.2 Hematocrit (Fma/CMC/CTX) 32.1 % Low 36.1 - 50.3 Mean Corpuscular Vol 86 82.2-97.4 Mean Corpuscular Hemoglobin 29.7 27.6-33.3 Mean Corpuscular Hemo Concen 34.6 32.0-36.0 Platelets 316 10^3/ul 150-400 RDW 13.5 11.6-13.7 Mean Platelet Volume 6.4 5.5-11.0 Neutrophil 42 Band 2 Lymphocytes 46 Monocyte 5 Eosinophils 5 Poikilocytosis slight Z#Comment plts normal Comprehensive Metabolic 01/09/2017 Alfredo Jill(fma) Sodium 142 mEq/L 134-149 Prof Potassium 4.4 [...] Culture, Final report 16, 17 Routine [address] [facility] [place] [address] (165)- - Result 1 No growth 18 G6PD Quantitative 01/09/2017 [facility] Hemoglobin 11.0 g/dL Low 11.1-15.9 Blood And [address] [facility] [place] [address] (324)- - G-6-PD, Quant 6.4 U/gHb 4.6-13.5 19 Ua - Micro (Fma) 01/09/2017 [facility] Appearance CLEAR (607)- - Color YELLOW Glucose, [...] [facility] IgG P93 Ab. Absent Serum [address] [place] [address] (607)- - IgG P66 Ab. Absent IgG [...] Interp. Negative 21 CBC Auto Diff 12/29/2016 [facility] White Blood Count 6.3 [...] % 0.2 N Laboratory test finding 12/29/2016 [facility] Lyme Disease Serology Negative N Negative 22 Poc Urinalysis 12/29/2016 [facility] Poc Glucose, Urine Negative N Negative Poc Bilirubin, Urine Negative N Negative Poc Ketone, Urine Negative N Negative Poc Specific [place], Urine <=1.005 Low 1.010-1.030 Poc Blood, Urine Trace-intact Abnormal Negative Poc pH, Urine 5.5 N 5-9 Poc Protein, Urine Negative N Negative Poc Urobilinogen, Urine 0.2 N Negative Poc Nitrite, Urine Negative N Negative Poc Leukocytes, Urine Negative N Negative Poc Color, Urine Yellow N Poc Clarity, Urine Clear N 23 Rapid Influenza A & B 12/29/2016 [facility] Influenza A Molecular NEGATIVE N Negative 24 Molecular Influenza B Molecular NEGATIVE N Negative Surgical Pathology 09/07/2014 [facility] S RUN DATE: 09/08/ <SEE 25 NOTE> Creatinine 08/10/2014 [facility] Creatinine 0.74 mg/dL N 0.51-0.95 Egfr Non- 78.5 N >60 Egfr 101.0 N >60 26 Laboratory test 04/22/2014 [facility] O P: Giardia/Cryptospor (SEE NOTE) 27 finding Screen Stool Culture (SEE NOTE) 28 E.coli O157:H7 Culture (SEE NOTE) 29 Urine Culture And 04/20/2014 [facility] Urine Culture (SEE NOTE) [...] - Z#Comments - Complete Blood Count 01/15/2014 Alfredo Jill([facility]) WBC 4.7 x10^3/UL 3.6 -9.6 RBC 4.19 x10^6/UL 3.90-5.70 HGB 12.3 g/dL 12.1-17.2 HCT 37 % 36-50 MCV 89.0 fL 82.2-97.4 MCH 29.4 pg 27.6-33.3 MCHC 33.0 g/dL 33.0-35.5 RDW 12.1 % 11.6-13.7 PLT 262 x10^3/UL 150-400 MPV 7.1 fL Low 7.4-10.4 Gran # 2.3 x10^3/UL 1.5-7.2 Lymph# 2.1 x10^3/UL 0.7-4.9 Oceana# 0.3 x10^3/UL 0.1-0.9 Gran % 48.4 % 42.2-75.2 Lymph % 45.0 % 20.5-51.1 Oceana% 6.6 % 1.7-9.3 Comprehensive Metabolic 01/15/2014 Alfredo Jill([facility]) Sodium 135 mEq/L 134-149 Prof Potassium 4.2 [...] Bilirubin 1.0 mg/dL 0.2-1.3 Laboratory test 01/15/2014 Alfredo Jill(fma) Free T3 2.36 pg/mL 2.00- 4.90 finding Free T4 0.85 ng/dL 0.75-1.54 Vitamin D25 39 30-100 TSH 2.55 mIU/L 0.50-6.00 Lyme Western Blot Ser 01/15/2014 [facility] IgG P93 Ab. Absent [address] [place] [id number] [phone] IgG P66 Ab. Absent IgG P58 Ab. [...] 33 finding Helicobacter pylori Ag Comprehensive 12/15/2011 Alfredo Jill(fma) Albumin 4.6 g/dL 3.8-5.5 Metabolic Prof Alk. [...] 16.4 Calc 8.0-36.0 Laboratory test 12/15/2011 Juni Melchor([facility]) Free T3 2.75 pg/mL 2.00- 4.90 finding Free T4 1.05 ng/dL 0.75-1.54 TSH 3.57 mIU/L 0.50-6.00 B12 371 pg/mL 230-1050 CBC Electronic ([facility]) 12/15/2011 [facility] WBC 4.6 3.6-9.6 (607)- - RBC 4.07 3.90-5.70 Hemoglobin (Fma/CMC/CTX) 11.9 g/dL Low 12.1 - 17.2 Hematocrit (a/CMC/CTX) 36.0 % Low 36.1 - 50.3 Platelets 306 10^3/ul 150-400 Lymph% 47.0 20.5-51.1 Mixed% 5.0 Neutrophils % 48.0 Mean Corpuscular Vol 89 82.2-97.4 Mean Corpuscular Hemoglobin 29.2 27.6-33.3 Mean Corpuscular Hemo Concen 33.0 32.0-36.0 RDW 12.2 11.6-13.7 Mean Platelet Volume 7.5 6.5-11.0 Anti Thyroid Abs 12/15/2011 [facility] Thyroid Peroxidase <6 IU/mL 0-[address] (Tpo) [place] [address] [phone] Antithyroglobulin Ab <20 IU/mL 0-40 34 Laboratory test 11/16/2010 [facility] Thin Prep SEE NOTE [address] W/HPV(Lsil/JUSTEN/Asc) [place] [address] [phone] Ua - Non Micro 11/16/2010 [facility] Appearance clear ([facility]) (607)- - Color yellow Glucose neg Bilirubin neg Ketones neg SP Grav 1.015 Blood neg PH 7.0 Protein neg Urobil 0.2 Nitrite neg Leukocytes (Fma/CMC/[facility]) neg Laboratory test 09/26/2010 Hospital (General) [facility] CBC;VIT D;IRON See Image finding Test Report 1 ADDITIONAL INFORMATION This test was developed and its performance characteristics determined by [facility] in a manner consistent with CLIA requirements. This test has not been cleared or approved by the U.S. Food and Drug Administration. Test Performed by: [facility] [address] [facility], [place] [address] 2 HEMATOPATH CONSULTATION SM EAR 3 No Babesia DNA detected. This test was developed and its performance characteristics determined by [facility]. It has not been cleared or approved [...] are those recommended by CDC/ASTPHLD. p23=Osp C, n64=srprxqgij Note: Sera from individuals with the following may cross react in the Lyme Western Blot assays: other spirochetal diseases (periodontal disease, leptospirosis, relapsing fever, yaws, and pinta); connective autoimmune (Rheumatoid Arthritis and Systemic Lupus Erythematosus and also individuals with Antinuclear Antibody); other infections ([place] Spotted Fever; Briana-Cook Virus, and Cytomegalovirus). 11 [...] developed and its performance characteristics determined by [employer]. It has not been cleared or approved by the U.S. Food and Drug Administration. The FDA has determined that such clearance or approval is not necessary. This test is used for clinical purposes. It should not be regarded as investigational or research. 15 RESULTS VERIFIED BY REPEAT ANALYSIS 16 SRC:<Blank> [id number] VACUTAINER 17 Source of Specimen: <Blank> [id number] 18 Source of Specimen: <Blank> [id number] 19 When decreased, G-6-PD, Quant. values are [...] are those recommended by CDC/ASTPHLD. p23=Osp C, b96=evmxsqrpm Note: Sera from individuals with the following may cross react in the Lyme Western Blot assays: other spirochetal diseases (periodontal disease, leptospirosis, relapsing fever, yaws, and pinta); connective autoimmune (Rheumatoid Arthritis and Systemic Lupus Erythematosus and also individuals with Antinuclear Antibody); other infections ([place] Spotted Fever; Briana-Cook Virus, and Cytomegalovirus). 22 Serologic response to B. burgdorferi infection is not detected, but cannot rule out early infection during which low or undetectable antibody levels to B. burgdorferi may be present. If clinically indicated, a new serum specimen should be submitted in 7-14 days. Test Performed by: [address] [address] 23 Dragger Out: [id number] 24 Dragger Out: [id number] 25 RUN DATE: 09/08/14 [facility] LIVE PAGE 1 RUN TIME: [address] [place] [address] Specimen Inquiry Name: KENIA WOODS : [address]: Osman Miller MD Acct: [id number] Unit: [id number] AGE: 64 Location: [facility] Re09/07/14 SEX: F Status: REG REF SPEC: [id number] NICHOLE: 09/07/14-[address] [facility] [address]: Osman Miller MD REQ: [id number] RECD: 09/07/149891 STATUS: GOOD [place] DR: Ibis Corral MD [...] performed at Main Lab DEPARTMENT OF PATHOLOGY, [address] [place] [address] Ran Hammond M.D. Director [facility] # [id number] 26 Because ethnic data is not always [...] <15 (or dialysis) 27 RUN DATE: 04/22/14 [facility] LIVE PAGE 1 RUN TIME: [address] [place] [address] Specimen Inquiry Name: MARTINADARIAMILESKENIA : [address]: Ibis Corral MD Acct: [id number] Unit: [id number] AGE: 64 Location: [facility] Re04/22/14 SEX: F Status: REG REF SPEC: [id number] NICHOLE: 04/22/14-999 [facility] DR: Ibis Corral MD REQ: [id number] RECD: 04/22/14 STATUS: RES _ SOURCE: STOOL SPDESC: ORDERED: E.coli O157:H7, Stool Culture, O P: Moraima/Leyda QUERIES: [employer] Number [id number] Procedure Result Verified Site E.coli O157:H7 Culture [...] is requested. Contact the Microbiology Department at [phone]. TEST LIMITATIONS: As with all diagnostic procedures, the results obtained should be used in conjunction with other clinical information available the physician. Negative results can occur in samples containing antigen below lower limits of CONTINUED ON NEXT PAGE * ML=Testing performed at Main Lab DEPARTMENT OF PATHOLOGY, [facility] [employer] [place] [address] Ran Hammond M.D. Director [facility] # [id number] RUN DATE: 04/22/14 [facility] LIVE PAGE 2 RUN TIME: 0555 [facility] [employer] [place] [address] Specimen Inquiry Patient: KENIA WOODS [id number] (Continued) Specimen: [id number] Collected: 04/22/14-999 Received: 04/22/14-1128 (Continued) Procedure Result [...] performed at Main Lab DEPARTMENT OF PATHOLOGY, [address] [place] [address] Ran Hammond M.D. Director [facility] # [id number] 28 RUN DATE: 04/24/14 [facility] LIVE PAGE 1 RUN TIME: 100[address] [place], [place] [address] Specimen Inquiry Name: KENIA WOODS : [address]: Ibis Corral MD Acct: [id number] Unit: [id number] AGE: 64 Location: [facility] Re04/22/14 SEX: F Status: REG REF SPEC: [id number] NICHOLE: 04/22/14-[address]: Ibis Corral MD REQ: [id number] RECD: 04/22/14 STATUS: RES _ SOURCE: STOOL SPDESC: ORDERED: E.coli O157:H7, Stool Culture, O P: Giaramis/Crypt QUERIES: Med[employer] Number [id number] Procedure Result Verified Site E.coli O157:H7 Culture [...] is requested. Contact the Microbiology Department at [phone]. TEST LIMITATIONS: As with all diagnostic procedures, the results obtained CONTINUED ON NEXT PAGE * ML=Testing performed at Main Lab DEPARTMENT OF PATHOLOGY, [facility] [employer] [place] [address] Ran Hammond M.D. Director [facility] # [id number] RUN DATE: 04/24/14 [facility] LIVE PAGE 2 RUN TIME: 1008 [facility] [employer] [place] [address] Specimen Inquiry Patient: KENIA WOODS [id number] (Continued) Specimen: [id number] Collected: 04/22/14-999 Received: 04/22/14-1128 (Continued) Procedure Result [...] performed at Main Lab DEPARTMENT OF PATHOLOGY, [address] [place] [address] Ran Hammond M.D. Director [facility] # [id number] 29 RUN DATE: 04/25/14 [facility] LIVE PAGE 1 RUN TIME: [address] [place] [address] Specimen Inquiry Name: KENIA WOODS : [address]: Ibis Corral MD Acct: [id number] Unit: [id number] AGE: 64 Location: [facility] Re04/22/14 SEX: F Status: REG REF SPEC: [id number] NICHOLE: 04/22/14-[address]: Ibis Corral MD REQ: [id number] RECD: 04/22/14 STATUS: COMP _ SOURCE: STOOL SPDESC: ORDERED: E.coli O157:H7, Stool Culture, O P: Giar/Crypt QUERIES: Medent Number [id number] Procedure Result Verified Site E.coli O157:H7 Culture Final 04/25/14- 0929 ML E. coli 0157 Culture Negative Stool Culture Final 04/25/14- 0929 ML Result No enteric pathogens isolated Testing [...] performed at Main Lab DEPARTMENT OF PATHOLOGY, [address] [place] [address] Ran Hammond M.D. Director [facility] # [id number] RUN DATE: 04/25/14 [facility] LIVE PAGE 2 RUN TIME: [address] [place] [address] Specimen Inquiry Patient: KENIA WOODS [id number] (Continued) Specimen: [id number] Collected: 04/22/14-999 Received: 04/22/14-1129 (Continued) Procedure Result Verified Site Shiga Toxin [...] is requested. Contact the Microbiology Department at [phone]. TEST LIMITATIONS: As with all diagnostic procedures, [...] performed at Main Lab DEPARTMENT OF PATHOLOGY, [facility] [employer] [place], [place] [address] Ran Hammond M.D. Director [facility] # [id number] 30 RUN DATE: 04/23/14 [facility] LIVE PAGE 1 RUN TIME: 917 [facility] [employer] [place], [place] [address] Specimen Inquiry Name: KENIA WOODS : [address]: Ibis Corral MD Acct: [id number] Unit: [id number] AGE: 64 Location: [facility] Re04/20/14 SEX: F Status: REG REF SPEC: [id number] NICHOLE: 04/20/14-[address]: Ibis Corral MD REQ: [id number] RECD: 04/21/14 STATUS: COMP _ SOURCE: URINE SPDESC: ORDERED: Urine Culture COMMENTS: 1 BORTEX QUERIES: Medent Number [id number] Procedure Result Verified Site Urine Culture Final 04/23/14- 09 ML No Growth Day 2 (<1,000 CFU/mL) END OF REPORT * ML=Testing performed at Main Lab DEPARTMENT OF PATHOLOGY, [address] [place] [address] Ran Hammond M.D. Director [facility] # [id number] 31 Positive: 5 of the following Borrelia-specific [...] are those recommended by CDC/ASTPHLD. p23=Osp C, h48=gtlszpzvx Note: Sera from individuals with the following may cross react in the Lyme Western Blot assays: other spirochetal diseases (periodontal disease, leptospirosis, relapsing fever, yaws, and pinta); connective autoimmune (Rheumatoid Arthritis and Systemic Lupus Erythematosus and also individuals with Antinuclear Antibody); other infections ([place] Spotted Fever; Briana-Cook Virus, and Cytomegalovirus). 33 Test Performed by: [address] [address] Head Charrer: Blayne Kim III, M.D. 34 Siemens (DPC) ICMA Methodology 35 [place], [place]. DEPARTMENT OF PATHOLOGY or Extension 2117 RESPOOLER CYTOLOGY REPORT PATIENT: KENIA WOODS : 1950 AGE: 60 Y SEX: F ACCT: [id number] PROCEDURE DATE: 11/16/2010 DATE RECEIVED: 11/17/2010 REQUESTING PHYSICIAN: IBIS CORRAL MD LOCATION: [facility] Case No. [id number] PATIENT DATA: [id number] SPECIMEN SUBMITTED: * * (HPVII) THIN PREP [...] are examined with an FDA-approved location-guidance system (10400). Performed @ [facility] [employer] [address] [place] [address] Procedures Date Code Description Status 12/09/2018 [id number] Mammogram Completed 11/08/2018 [id number] Bone Mineral Density Test Completed 09/07/2014 85854609 Colonoscopy Completed 08/02/2009 85872709 Colonoscopy Completed Encounters Type Date Location Provider Dx Diagnosis Office Visit 11/21/2018 [facility] Office Ibis Lechuga00.00 Encntr for general 1:00p Allie Corral adult medical exam w/o abnormal findings Z12.31 [...] Simona Eli M25.511 Pain in right Xiao, MEDICAL RECORD LIBRARIAN shoulder M25.551 Pain in right hip M54.2 [...] Routine AT Health Care Facility V72.31 Routine Top Former Examination 733.09 Osteoporosis Other 529.6 Glossodynia Office Visit 10/05/2010 4:00p Main Office Ibis Corral M.D. 529.6 Glossodynia 733.09 Osteoporosis Other Plan of Treatment 01/07/2019 - Ibis Corral M.D.E78.2 Mixed hyperlipidemiaComments:8.2% risk for heart attack and stroke. You have chosen NOT to go on a statin medication. I recommendfish oil in addition to your daily walking and jay chi.E55.9 Vitamin D deficiency, unspecifiedNew Medication:Vitamin D ( Ergocalciferol) 49197 Unit - take 1 capsule by mouth once weekly for 8 weeks.Comments:should take daily multivitamin. afer finishing the high dose vitamin D x 8, then 2-t3000 units a day along with a daily multivitamin.M81.0 Age-related osteoporosis without current pathological fractuComments:garden of life calcium and bone builder ornew chapter calciumplus fish oil. continue your jay chiand walking. [employer]. A book about strength training exercises you can do at home without much equipment.J32.9 Chronic sinusitis, unspecifiedComments:would like a second opinion/follow up with Dr. Miller81.4 Uterovaginal prolapse, unspecifiedComments:refer to Dr. Damico for evaluation.AllComments:Medication Management Patient Understands medications she 's taking? Yes No Are there Barriers to Adherence? Yes No Has the patient been asked about herbal supplements and therapies, and OTC meds? Yes No
[2019-01-31] MEDS ORDERED: NS 0.9% 1000 ML** 2,000 ML IV ONE (05:10)
[2019-01-31] MEDS ORDERED: Ondansetron INJ* 2 MG/ML VIAL IV ONE (05:10)
--- NOTE | 2019-01-31 05:25 | ED ---
Abdominal Pain/Female - HPI Summary HPI Summary: Pt is a 68 y/o F presenting to the ED with a chief complaint of abd pain onset initially on 01/29/19. She had sx including a fever of 102, body aches, headaches , and sinus congestion. The next day, she went to her PCP who gave her Doxycycline for possible Lyme disease, but she started to feel worse. She reports nausea, diffuse abd pain, mostly in her lower abd, and constipation. She denies vomiting or diarrhea. She has had Lyme before and her sx presented in a similar way. - History of Current Complaint Chief Complaint: EDAbdPain Stated Complaint: ABD PAIN PER PT Time Seen by Provider: 01/31/19 05:03 Hx Obtained From: Patient Onset/Duration: Gradual Onset, Lasting Days, Still Present Timing: Days Severity Initially: Moderate Severity Currently: Severe Pain Intensity: 8 Pain Scale Used: 0-10 Numeric Location: Umbilical Radiates: No Aggravating Factor(s): Nothing Alleviating Factor(s): Nothing Associated Signs and Symptoms: Positive: Fever, Constipation, Nausea. Negative : Vomiting, Diarrhea Allergies/Adverse Reactions: Allergies Allergy/AdvReac Type Severity Reaction Status Date / Time Penicillins Allergy Unknown Swelling Verified 01/31/19 04:57 PMH/Surg Hx/FS Hx/Imm Hx Previously Healthy: Yes Endocrine/Hematology History: Denies: Hx Diabetes, Hx Thyroid Disease Cardiovascular History: Denies: Hx Hypertension, Hx Pacemaker/ICD Respiratory History: Denies: Hx Asthma, Hx Chronic Obstructive Pulmonary Disease (COPD) GI History: Denies: Hx Ulcer History: Denies: Hx Renal Disease Sensory History: Denies: Hx Hearing Aid Psychiatric History: Denies: Hx Panic Disorder - Cancer History Hx Chemotherapy: No Hx Radiation Therapy: No - Surgical History Surgery Procedure, Year, and Place: APPENDECTOMY Infectious Disease History: Yes Infectious Disease History: Denies: Hx Hepatitis, Hx Human Immunodeficiency Virus (HIV), Traveled Outside the [place] in Last 30 Days - Family History Known Family History: Negative: Respiratory Disease - Social History Alcohol Use: Weekly Alcohol Amount: 3-4 GLASSES/WEEK Hx Substance Use: No Substance Use Type: Reports: None Hx Tobacco Use: No Smoking Status (MU): Never Smoked Tobacco Review of Systems Positive: Fever Positive: Other - congestion Positive: Abdominal Pain, Nausea, Other - constipation. Negative: Vomiting, Diarrhea Positive: Myalgia Positive: Headache All Other Systems Reviewed And Are Negative: Yes Physical Exam - Summary Physical Exam Summary: Appearance: Well-appearing, Well-nourished, lying in bed comfortably Skin: Warm, dry, erythematous oval rash on the forearm, some target-like appearance to it. Eyes: sclera anicteric, no conjunctival pallor ENT: mucous membranes moist, pharynx appears normal Neck: Supple, nontender Respiratory: Clear to auscultation, no signs of respiratory distress Cardiovascular: Normal S1, S2. No murmurs. Normal distal pulses in tibial and radial bilaterally. Abdomen: Soft, nontender, normal active bowel sounds present Musculoskeletal: Normal, Strength/ROM Intact Neurological: A&Ox3, awake and alert, mentation is normal, speech is fluent and appropriate Psychiatric: affect is normal, does not appear anxious or depressed Triage Information Reviewed: Yes Vital Signs On Initial Exam: Initial Vitals Temp Pulse Resp BP Pulse Ox 99.6 F 108 20 104/82 96 01/31/19 04:54 01/31/19 04:54 01/31/19 04:54 01/31/19 04:54 01/31/19 04:54 Vital Signs Reviewed: Yes Diagnostics - Vital Signs Vital Signs Temp Pulse Resp BP Pulse Ox 01/31/19 04:54 99.6 F 108 20 104/82 96 - Laboratory Result Diagrams: 01/31/19 05:33 01/31/19 05:33 Lab Statement: Any lab studies that have been ordered have been reviewed, and results considered in the medical decision making process. - EKG 0522 Cardiac Rate: Tachycardia - 101bpm EKG Rhythm: Sinus Rhythm ST Segment: Non-Specific Ectopy: None Summary of EKG Findings: EKG at 0522 shows sinus tachycardia at 101bpm with borderline ST elevation and no STEMI. Abdominal Pain Fem Course/Dx - Course Course Of Treatment: Pt is a 68 y/o F presenting to the ED with a chief complaint of abd pain onset initially on 01/29/19. She had sx including a fever of 102, body aches, headaches, and sinus congestion. She reports nausea, diffuse abd pain, mostly in her lower abd, and constipation. She denies vomiting or diarrhea. Her PCP gave her Doxycycline for potential Lyme disease, which she has had before and presented in a similar way. EKG at 0522 shows sinus tachycardia at 101bpm with borderline ST elevation and no STEMI. She will be signed out to Dr. Galo pending CT abd/pelv results. - Diagnoses Provider Diagnoses: Lyme disease, Abdominal pain Discharge - Sign-Out/Discharge Documenting (check all that apply): Sign-Out Patient Signing out patient TO: Alannah Galo - Discharge Plan Condition: Stable Referrals: Ibis Urbina MD [Primary Care Provider] - - Attestation Statements Document Initiated by Scribe: Yes Documenting Scribe: Sabrina Flores Provider For Whom Steffi is Documenting (Include Credential): Travis Denny MD. Scribe Attestation: Sabrina Horan, fabianed for Travis Denny MD. on 01/31/19 at 0627. Status of Scribe Document: Ready
[2019-01-31 05:38] LABS: ABS Lymphocytes 0.6 10^3/ul (1.0-4.8); ABS Monocytes 0.4 10^3/ul (0-0.8); ABS Neutrophils 3.9 10^3/ul (1.5-7.7); Hematocrit 35 % (35-47); Hemoglobin 11.9 g/dL (12.0-16.0); Lymphocyte % 12.9 %; Mean Corpuscular HGB Conc 34 g/dL (31-36); Mean Corpuscular Hemoglobin 29 pg (27-31); Mean Corpuscular Volume 86 fL (80-97); Platelet Count 186 10^3/uL (150-450); Red Blood Count 4.11 10^6 /uL (3.70-4.87); Red Cell Distribution Width 14 % (10.5-15)
[2019-01-31] MEDS ORDERED: Acetaminophen TAB* 325 MG PO ONE (05:52)
[2019-01-31 05:56] LABS: Albumin 4.2 g/dL (3.2-5.2); Albumin/Globulin Ratio 1.5 (1-3); BUN/Creatinine Ratio 11.4 (8-20); C Reactive Protein 49.44 mg/L (<8.01); Calcium 9.2 mg/dL (8.6-10.3); EGFR African American 87.1 (>60); EGFR Non-African American 71.9 (>60); Globulin 2.8 g/dL (2-4); Potassium 3.8 mmol/L (3.5-5.0); Total Bilirubin 0.7 mg/dL (0.2-1.0)
[2019-01-31 05:57] LABS: Troponin I 0.01 ng/mL (<0.04)
[2019-01-31] MEDS ORDERED: Iohexol 300* (CONTRAST) 10 ML SDV IV ONE (07:19)
--- NOTE | 2019-01-31 07:45 | ED ---
Progress - Progress Note Progress Note: RECEIVING SIGN-OUT FROM DR. GREGORIO AT SHIFT CHANGE (07:00) ON 01/31/2019 PENDING A/P CT. HPI: Pt is a 68 y/o F presenting to the ED c/o abd pain onset two days ago. Pt is currently being treated for possibility of Lyme with Doxycycline. Physical Exam: Appearance: Ill-appearing, moderate pain distress, well-nourished Skin: Warm, color reflects adequate perfusion, dry. Bulls eye rash on R forearm Head: Normal Head/Face inspection, atraumatic Eyes: Conjunctiva clear ENT: Normal inspection Neck: Supple, no nodes, no JVD Respiratory: Lungs clear, normal breath sounds, no respiratory distress Cardio: RRR, No murmur, pulses normal, brisk capillary refill Abdomen: Soft, nontender, nondistended, no masses, no CVAT Bowel sounds: Present Musculoskeletal: Strength Intact/ROM intact, no calf tenderness, no edema. Psychological: Normal Neuro: Alert, muscle tone normal, no focal deficit - Results/Orders Results/Orders: CT ABD/PEL as read by radiologist: IMPRESSION: 1. NO EVIDENCE FOR ACUTE INTRA-ABDOMINAL ABNORMALITY. 2. STABLE SMALL HEPATIC LESIONS. 3. STATUS POST APPENDECTOMY. ED provider has reviewed this report. Re-Evaluation - Re-Evaluation 1 Re-Evaluation Time: 10:07 Change: Improved Comment: Reviewing CT results with patient and and plan for discharge, they are agreeable to that. Will PO challenge at this time. Also discussed switching ABX from Doxycycline to Cephalexin due to the fact that abd pain may be a side effect of doxycycline although she has taken it in the past. Also prescribed Zofran for nausea, and recommended Gas X. Course/Dx - Course Course Of Treatment: RECEIVING SIGN-OUT FROM DR. GREGORIO AT SHIFT CHANGE (07:00) ON 01/31/2019 PENDING A/P CT. Pt is a 68 y/o F presenting to the ED c/o abd pain onset two days ago. Pt is currently being treated for possibility of Lyme with Doxycycline. In the ED pt developed definite bulls-eye rash on her right forearm. A/P CT shows "1. NO EVIDENCE FOR ACUTE INTRA-ABDOMINAL ABNORMALITY. 2. STABLE SMALL HEPATIC LESIONS. 3. STATUS POST APPENDECTOMY.". Reviewed CT results with patient and and plan for discharge, they are agreeable to that. Discussed switching ABX from Doxycycline to Cephalexin. Pt is allergic to amoxicillin. Pt's abdominal pain may be due to doxycylcine, even though she has taken it in the past. Also prescribed Zofran and recommended Gas X. Patient is to f/u with Dr. Urbina, PCP, within 2 days to discuss antibiotic choice, to extend the antibiotic that is chosen to continue treatment of the Lyme disease. - Diagnoses Provider Diagnoses: Abdominal pain, Lyme disease, Erythema migrans (Lyme disease) Discharge - Sign-Out/Discharge Documenting (check all that apply): Patient Departure - D/C, Receiving Sign-Out Receiving patient FROM: [facility] - 0700 01/31/19 pending A/P CT Patient Received Moderate/Deep Sedation with Procedure: No - Discharge Plan Condition: Stable Disposition: HOME Prescriptions: Cephalexin CAP* [Keflex 500 CAP*] 500 mg PO QID #40 cap Ondansetron ODT TAB* [Zofran 4 MG Odt TAB*] 4 mg PO Q6H PRN #20 tab.odt PRN Reason: Nausea Patient Education Materials: Lyme Disease (ED), Acute Abdominal Pain (ED) Referrals: Ibis Urbian MD [Primary Care Provider] - 2 Days Additional Instructions: We gave you a copy of you CT exam which was unremarkable for the cause of your abdominal pain. Please bring a copy of this CT to Dr. Urbina. Dr. Galo is asking him to stop doxycycline. She is starting cephalexin 500 mg 4 times [address] day in place of the doxycycline. You should discuss with Dr. Urbina, which antibiotic she wants you to use for Lyme disease. Please let Dr. Urbina know that you had a definite bull's-eye rash on your right forearm when you wer in the emergency department. Dr. Galo also prescribed Zofran, which is the same as ondansetron, that you may use under tongue or chew for nausea or stomach upset. She also recommends if you have gas to try a preparation with Simethicone in it. One such medication with simethicone is Gas-X. She also recommends that you try crackers and rosalio dereck when your stomach is upset. Return to the ER if you have any new or worsening symptoms. - Billing Disposition and Condition Condition: STABLE Disposition: Home - Attestation Statements Document Initiated by Scribe: Yes Documenting Scribe: Frantz Dean Provider For Whom Marcela is Documenting (Include Credential): Dr. Alannah Galo MD Scribe Attestation: Frantz Horan, scribed for Dr. Alannah Galo MD on 02/03/19 at 2201. Scribe Documentation Reviewed: Yes Provider Attestation: The documentation as recorded by the marcela, Frantz Dean accurately reflects the service I personally performed and the decisions made by me, Dr. Alannah Galo MD Status of Scribe Document: Viewed
[2019-01-31 09:45] LABS: Urine Appearance Clear; Urine Bacteria Absent (Absent); Urine Bilirubin Negative (Negative); Urine Blood 3+ (Negative); Urine Color Yellow; Urine Glucose Negative (Negative); Urine Ketones Negative (Negative); Urine Nitrite Negative (Negative); Urine Protein Negative (Negative); Urine Red Blood Cell 3+(>10/hpf) (Absent); Urine Specific Gravity 1.018 (1.010-1.030); Urine Urobilinogen Negative (Negative); Urine White Blood Cell Absent (Absent)
[2019-01-31 10:45] VITALS: BP 111/65
== END 2019-01-31 10:45 | disposition home or self-care (01) ==
LOC: ED 04:53
DX: A69.20 Lyme disease, unspecified (principal); R10.9 Unspecified abdominal pain; Z90.49 Acquired absence of other specified parts of digestive tract; K76.9 Liver disease, unspecified; R94.31 Abnormal electrocardiogram [ECG] [EKG]; Z88.0 Allergy status to penicillin
CPT/HCPCS: 36415; 74177; 80053; 81003; 81015; 83690; 84484; 85025; 86140; 93005; 96361; 96374; 99283; A9270-GY; J2405; Q9967

== ENCOUNTER 2021-04-05 14:54 | Observation (INO) ==
[2021-04-05 15:50] LABS: ABS Eosinophils 0.3 10^3/ul (0-0.6); ABS Lymphocytes 2.2 10^3/ul (1.0-4.8); ABS Monocytes 0.5 10^3/ul (0-0.8); ABS Neutrophils 3.8 10^3/ul (1.5-7.7); Eosinophil % 4.3 %; Hematocrit 37 % (35-47); Hemoglobin 12.5 g/dL (12.0-16.0); Lymphocyte % 31.8 %; Mean Corpuscular HGB Conc 34 g/dL (31-36); Mean Corpuscular Hemoglobin 30 pg (27-31); Mean Corpuscular Volume 88 fL (80-97); Mean Platelet Volume 7.2 fL (7.4-10.4); Platelet Count 251 10^3/uL (150-450); Red Blood Count 4.25 10^6 /uL (3.70-4.87); Red Cell Distribution Width 14 % (10-15); White Blood Count 6.9 10^3/uL (3.5-10.8)
[2021-04-05 16:14] LABS: Calcium 9.6 mg/dL (8.6-10.3); EGFR African American 99.2 (>60); Magnesium 1.8 mg/dL (1.9-2.7); Potassium 4.3 mmol/L (3.5-5.0)
[2021-04-05] MEDS ORDERED: Magnesium Sulfate 2 gm BAG 2 GM/50 ML BAG IVPB ONE (16:15)
[2021-04-06 15:38] VITALS: BP 135/66
== END 2021-04-06 16:40 | disposition home or self-care (01) ==
LOC: MEDTELE 14:54 → ED 14:54
PROVIDERS: ADMIT Hospitalist; ATTEND Hospitalist

== ENCOUNTER 2024-02-07 14:56 | Observation (INO) ==
[2024-02-07 15:23] LABS: ABS Eosinophils 0.3 10^3/uL (0.0-0.5); ABS Lymphocytes 2.6 10^3/uL (1.0-4.8); ABS Monocytes 0.5 10^3/uL (0.0-0.9); ABS Neutrophils 3.2 10^3/uL (1.5-7.6); ABS Nucleated RBC 0.02 10^3/ul; Eosinophil % 4.9 %; Hematocrit 34.5 % (35-45); Hemoglobin 11.5 g/dL (11.5-14.3); Lymphocyte % 38.8 %; Mean Corpuscular Hemoglobin 28.4 pg (27-33); Mean Corpuscular Hgb Conc 33.5 g/dL (31-36); Mean Corpuscular Volume 84.9 fL (80-97); Mean Platelet Volume 7.3 fL (7.5-11.2); Nucleated Red Blood Cells % 0.3 %/100WBC (0.0-0.8); Platelet Count 269 10^3/uL (150-450); Red Blood Count 4.06 10^6/uL (3.63-4.92); White Blood Count 6.6 10^3/uL (3.8-11.8)
[2024-02-07 15:34] LABS: INR 0.95 (0.83-1.13)
[2024-02-07] MEDS: Iodixanol (CONTRAST) 320 MG/ML 100 ML SDV IV ONE (15:52)
[2024-02-07 16:13] LABS: Albumin 4.4 g/dL (3.2-5.2); Albumin/Globulin Ratio 1.7 (1-3); Calcium 9.7 mg/dL (8.6-10.3); Creatinine, Serum 0.78 mg/dL (0.51-0.95); Globulin 2.6 g/dL (2-4); HDL Cholesterol 82.4 mg/dL; Potassium 4.3 mmol/L (3.5-5.0); Total Bilirubin 0.9 mg/dL (0.2-1.0); eGFR CKD-EPI 79.2 (>60)
[2024-02-07 16:47] LABS: High Sensitivity Troponin 1 Hr 3 pg/mL (<15)
[2024-02-07 17:24] LABS: TSH Ultra Thyroid Stim Horm 2.19 mcIU/mL (0.34-5.60)
[2024-02-07] MEDS ORDERED: Sulfur Hexaflouride MICROSPHR 25 MG VIAL IV ONE (17:52)
[2024-02-07] MEDS ORDERED: NON FORMULARY MED (Omeprazole 20 mg Tablet,Delayed Release (Dr/Ec)) PO SCH (21:00)
[2024-02-07 22:57] LABS: Urine Appearance Clear; Urine Bilirubin Negative (Negative); Urine Blood Negative (Negative); Urine Color Light-Yellow; Urine Glucose Negative (Negative); Urine Ketones Negative (Negative); Urine Nitrite Negative (Negative); Urine Protein Negative (Negative); Urine Specific Gravity 1.029 (1.002-1.030); Urine Urobilinogen Negative (Negative)
[2024-02-07 22:59] LABS: Urine Bacteria Absent /HPF (Absent); Urine Red Blood Cell Trace(0-2/hpf) /HPF (0-Trace); Urine White Blood Cell Trace(0-5/hpf) /HPF (0-Trace)
[2024-02-08] MEDS: Cholecalciferol (VIT D3) 1,000 unit TAB PO SCH (07:43)
[2024-02-08 10:31] VITALS: BP 133/61
== END 2024-02-08 12:40 | disposition home or self-care (01) ==
LOC: EDHOLD 14:56 → ED 14:56 → MEDTELE 19:43
PROVIDERS: ADMIT Internal Medicine; ATTEND Internal Medicine